=== PATIENT | female | born 1945 | race Caucasian/White ===

== ENCOUNTER 2017-09-26 03:11 | Emergency (ER) | payer MEDICARE, OTHER, SELFPAY ==
--- NOTE | 2017-09-26 03:20 | ED.ABDPAIN ---
HPI - Abdominal Pain General Chief Complaint: Urogenital-Female Stated Complaint: Thinks she has a kidney stone Time Seen by Provider: 09/26/17 03:20 Source: patient Mode of arrival: ambulatory Limitations: no limitations History of Present Illness HPI narrative: The patient arrives with urinary urgency that has been intermittent for about a week. Over the last 3-4 days she has developed left flank and left lower quadrant pain. She now has dysuria. She has nausea without emesis. She has no diarrhea. She has had no fever or chills. She has only a very remote history of UTI. She has also had kidney stones. Appetite has been good, bowel movements have decreased. Related Data Home Medications Medication Instructions Recorded Confirmed multivitamin [Multiple Vitamins] 1 tab PO QDAY #0 tab 12/03/15 Previous Rx's Medication Instructions Recorded [id number] 4 drp OTIC QID #10 ml 12/03/15 ondansetron HCl [Zofran] 4 mg PO Q4H PRN #10 tab 09/26/17 sulfamethoxazole-trimethoprim 1 tab PO BID 7 Days #14 tab 09/26/17 [Bactrim DS] Allergies Allergy/AdvReac Type Severity Reaction Status Date / Time adhesive tape [ADHESIVE TAPE] Allergy Unknown Verified 09/26/17 03:28 Review of Systems Review of Systems All systems reviewed & are unremarkable except as noted in HPI and below Constitutional Reports as per HPI, Denies anorexia, Denies body ache(s), Denies chills, Denies fatigue and Denies fever(s) ENT Ears, Nose, Mouth, and Throat: Denies nasal discharge and Denies sore throat Cardiovascular Denies chest pain, Denies irregular heart rhythm, Denies lightheadedness, Denies palpitations and Denies dyspnea Respiratory Denies cough and Denies dyspnea Gastrointestinal Gastrointestinal: Reports abdominal pain, Denies change in bowel habits, Denies diarrhea, Reports nausea and Denies vomiting Genitourinary Reports as per HPI, Denies hematuria, Reports urinary frequency, Reports flank pain, Denies urinary incontinence and Reports urinary urgency Musculoskeletal Reports back pain, Denies muscle weakness, Denies numbness and Denies tingling Integumentary/Breasts Denies pruritus, Denies erythema, Denies rash and Denies wounds Neurologic Denies numbness and Denies tingling Endocrine Denies fatigue and Denies palpitations Exam Initial Vital Signs Initial Vital Signs: Vital Signs Temperature 98.6 F 09/26/17 03:22 Pulse Rate 84 09/26/17 03:22 Respiratory Rate 16 09/26/17 03:22 Blood Pressure 168/68 H 09/26/17 03:22 Pulse Oximetry 96 09/26/17 03:22 Const General: cooperative and well developed Nutritional Appearance: well nourished Orientation: alert, awake, oriented x3 and not confused [facility] Head: normocephalic and atraumatic Mouth: oral mucosae normal and moist mucous membranes Throat: tonsils normal and uvula midline Resp Effort & Inspection: normal respiratory effort, able to speak in complete sentences, no respiratory distress and no use of accessory muscles Auscultation: clear to auscultation bilaterally, no rales, no rhonchi and no wheezes Cardio Rate: regular rate Rhythm: regular rhythm Heart Sounds: S1 normal, S2 normal, no click, no gallops, no murmurs and no rubs Pulses: normal peripheral pulses GI Inspection: non-distended Palpation: soft, no hepatosplenomegaly, No pulsatile mass and tender (Left flank and left lower quadrant tenderness without guarding or rebound.) Auscultation: normal bowel sounds Back/Spine/Pelvis Back: No CVA tenderness Cervical Spine: cervical ROM normal and No pain with cervical ROM Thoracic/Lumbar Spine: thoracic and lumbar spine normal to inspection Skin General: no rashes or lesions noted, No jaundice and No petechiae Neuro General: alert, oriented x3, gait normal and no focal motor deficits Speech: speech normal Course Orders Ordered: ED Orders 09/26/17 03:40 Complete Blood Count AUTO DIFF Stat Comprehensive Metabolic Panel Stat Lipase Stat 09/26/17 04:55 Urinalysis and Microscopic Stat Urine Culture Stat Ceftriaxone Sodium/Dextrose (Rocephin) 1 gm in 50 mls @ 100 mls/hr IV NOW ONE Stop: 09/26/17 05:44 Discontinued Medications Sodium Chloride (Normal Saline 0.9%) 1,000 mls @ 1,000 mls/hr IV BOLUS ONE Stop: 09/26/17 04:26 Last Infusion: 09/26/17 04:55 Dose: 0 mls/hr Admin: 09/26/17 03:45 Dose: 1,000 mls/hr Ketorolac Tromethamine (Toradol) 30 mg IV NOW ONE Stop: 09/26/17 03:28 Last Admin: 09/26/17 03:45 Dose: 30 mg Ketorolac Tromethamine (Toradol) 30 mg IV NOW ONE Stop: 09/26/17 04:12 Ondansetron HCl (Zofran) 4 mg IV NOW ONE Stop: 09/26/17 03:28 Last Admin: 09/26/17 03:45 Dose: 4 mg Ondansetron HCl (Zofran) 4 mg IV NOW ONE Stop: 09/26/17 04:12 Vital Signs - 8 hr 09/26/17 03:22 Temperature 98.6 F Pulse Rate 84 Respiratory Rate 16 Blood Pressure 168/68 H Pulse Oximetry 96 MDM - Abdominal Pain Lab Data Attestation: I reviewed the patient's lab results. Result diagrams: 09/26/17 03:40 09/26/17 03:40 Lab Results 09/26/17 09/26/17 09/26/17 Range/Units 03:40 03:40 04:55 WBC 9.6 (4.5-11.0) X10^3/uL RBC 4.73 (4.0-5.2) X10^6/uL Hgb 13.8 (12.0-16.0) g/dL Hct 41.2 (36-46) % MCV 87.1 (80-100) fL MCH 29.1 (26-34) PG MCHC 33.5 (30-36) % RDW 13.3 (11.6-14.8) % Plt Count 200 (150-400) X10^3/uL Neut % (Auto) 73.4 (50-75) % Lymph % (Auto) 21.7 L (25-40) % [place] % (Auto) 4.1 (3-14) % Eos % (Auto) 0.3 L (2-4) % Baso % (Auto) 0.5 (0-2) % Neut # (Auto) 7000 H (0787-3545) /uL Sodium 139 (137-145) mmol/L Potassium 4.3 (3.4-5.1) mmol/L Chloride 100 (98-107) mmol/L Carbon Dioxide 29 (22-32) mmol/L BUN 16 (7-17) mg/dL Creatinine 0.80 (0.52-1.04) mg/dL Estimated GFR > 60.0 (>60) mL/min BUN/Creatinine Ratio 20.0 (6-22) Glucose 174 H (80-110) mg/dL Calcium 10.3 H (8.4-10.2) mg/dL Total Bilirubin 0.7 (0.2-1.3) mg/dL AST 24 (14-36) IU/L ALT 42 (9-52) IU/L Alkaline Phosphatase 120 (38-126) U/L Total Protein 7.0 (6.3-8.2) g/dL Albumin 4.2 (3.5-5.0) g/dL Globulin 2.8 (1.7-4.1) g/dL Albumin/Globulin Ratio 1.5 (1.0-2.8) Lipase 55 (23-300) U/L Urine Color Yellow Urine Appearance Sl cloudy Urine pH 5.5 (4.5-8.0) Ur Specific [place] 1.025 (1.000-1.035) Urine Protein 2+ H (Negative) Urine Glucose (UA) Negative (Normal) g/dL Urine Ketones Trace H (NEGATIVE) Urine Occult Blood 3+ H (Negative) Urine Nitrate Positive H (Negative) Urine Bilirubin Negative (NEGATIVE) Urine Urobilinogen 0.2 (0.2) E.U./dL Ur Leukocyte Esterase 1+ H (NEGATIVE) Urine RBC 5-10/hpf H (0-5/HPF) Urine WBC >100/hpf H (0-5/HPF) Urine Bacteria Many (>30) H (None) Ur Culture Indicated? Specimen cultured Micro UA Comment Not Reportable MDM Narrative Medical decision making narrative: She has received IV fluids, and Toradol. Her pain is diminished. I have given her an initial dose of Rocephin for the UTI. She will be discharged on Septra DS and Zofran. Discharge Plan Departure Patient Disposition: Home, Self-Care Clinical Impression: Urinary tract infection Instructions: DI for Urinary Tract Infection (UTI) Activity Restrictions/Additional Instructions: Take Tylenol every 4 hr as needed for pain. Zofran every 4 hr as needed for nausea. Bactrim DS 2 times daily as prescribed. Return for increased pain, vomiting or fever. Prescriptions: New sulfamethoxazole-trimethoprim [Bactrim DS] 800-160 mg tablet 1 tab PO BID 7 Days Qty: 14 RF: 0 ondansetron HCl [Zofran] 4 mg tablet 4 mg PO Q4H PRN (Reason: nausea) Qty: 10 RF: 0 No Action multivitamin [Multiple Vitamins] 1 EACH tablet 1 tab PO QDAY Qty: 0 RF: 0 [id number] 10 ML drops,suspension 4 drp OTIC QID Qty: 10 RF: 0
[2017-09-26 03:22] VITALS: BP 168/68; PULSE 84; RESP 16; TEMP 37; O2SAT 96; BMI 32.3
[2017-09-26] MEDS: KETOROLAC 60 MG/2 ML VIAL 30 MG IV (03:45)
[2017-09-26] MEDS: ONDANSETRON 4 MG/2 ML INJ IV (03:45)
[2017-09-26] MEDS: SODIUM CHLORIDE 0.9% 1,000 ML 1000 ML IV (03:45)
[2017-09-26 03:50] LABS: Add Manual Diff / Slide Review NO; Basophils Percent Auto 0.5 % (0-2); Eosinophils Percent Auto 0.3 % (2-4); Hematocrit 41.2 % (36-46); Hemoglobin 13.8 g/dL (12.0-16.0); Lymphocytes Percent Auto 21.7 % (25-40); Mean Corpuscular HGB Conc 33.5 % (30-36); Mean Corpuscular Hemoglobin 29.1 PG (26-34); Mean Corpuscular Volume 87.1 fL (80-100); Monocytes Percent Auto 4.1 % (3-14); Neutrophils Absolute Auto 7000 /uL (3000-5900); Neutrophils Percent Auto 73.4 % (50-75); Platelet Count 200 X10^3/uL (150-400); Red Blood Cell Count 4.73 X10^6/uL (4.0-5.2); Red Cell Distribution Width 13.3 % (11.6-14.8); White Blood Cell Count 9.6 X10^3/uL (4.5-11.0)
[2017-09-26 04:01] LABS: Alanine Aminotransferase 42 IU/L (9-52); Albumin 4.2 g/dL (3.5-5.0); Albumin Globulin Ratio 1.5 (1.0-2.8); Alkaline Phosphatase 120 U/L (38-126); Aspartate Aminotransferase 24 IU/L (14-36); Bilirubin Total 0.7 mg/dL (0.2-1.3); Blood Urea Nitrogen 16 mg/dL (7-17); Calcium 10.3 mg/dL (8.4-10.2); Carbon Dioxide 29 mmol/L (22-32); Chloride 100 mmol/L (98-107); Estimated Glomerular Filt Rate > 60.0 mL/min (>60); Globulin 2.8 g/dL (1.7-4.1); Glucose 174 mg/dL (80-110); HEMOLYSIS < 15 (0-50); Lipase 55 U/L (23-300); Potassium 4.3 mmol/L (3.4-5.1); Sodium 139 mmol/L (137-145)
[2017-09-26 05:04] LABS: Bilirubin Urine UA NEGATIVE (NEGATIVE); Color Urine UA YELLOW; Glucose Urine UA NEGATIVE (Normal); Ketones Urine UA TRACE (NEGATIVE); Leukocyte Esterase Urine UA 1+ (NEGATIVE); Nitrite Urine UA POSITIVE (Negative); Occult Blood Urine UA 3+ (Negative); Protein Urine UA 2+ (Negative); Specific Gravity Urine UA 1.025 (1.000-1.035); Urobilinogen Urine UA 0.2 E.U./dL (0.2); pH Urine UA 5.5 (4.5-8.0)
[2017-09-26 05:05] LABS: Appearance Urine UA SL CLOUDY
[2017-09-26 05:14] LABS: Bacteria Urine Many (>30); Culture Indicated Urine Specimen Cultured; RBC Urine 5-10/HPF (0-5/HPF); WBC Urine >100/HPF (0-5/HPF)
[2017-09-26] MEDS: CEFTRIAXONE 1 GM/50 ML FROZ.PIGGY IV (05:21)
[2017-09-26 06:01] VITALS: BP 111/47; PULSE 68; RESP 14; O2SAT 94
[2017-09-26 06:06] VITALS: TEMP 36.4
== END 2017-09-26 06:09 | disposition home or self-care (01) ==
PROVIDERS: Emergency Provider Emergency Medicine
DX: N39.0 Urinary tract infection, site not specified (principal)
CPT/HCPCS: 36591; 80053; 81001; 83690; 85025; 87077; 87086; 87186; 96361; 96365; 96375; 99283; 99284; J1885; J2405

== ENCOUNTER → 2018-08-15 15:51 | Outpatient (CLI) | payer MEDICARE, OTHER, SELFPAY ==
[2018-08-15 17:52] LABS: TSH w/ Reflex to FT4 1.49 uIU/mL (0.47-4.68)
== END ==
PROVIDERS: Visit Provider Internal Medicine
DX: R53.83 Other fatigue (principal)
CPT/HCPCS: 36415; 84443

== ENCOUNTER 2018-10-05 12:24 | Emergency (ER) | payer MEDICARE, OTHER, SELFPAY ==
--- NOTE | 2018-10-05 12:44 | DI.RAD.S_ITS ---
PROCEDURE: XR CHEST 1V INDICATIONS: dizzyness TECHNIQUE: One view of the chest was acquired. COMPARISON: None. FINDINGS: Surgical changes and devices: None. Lungs and pleura: Minimal scar versus atelectasis at the right lung base is oriented in a linear configuration overlying the diaphragm. No suspicious area of consolidation is evident. No pleural effusions or pneumothorax. Mediastinum: Mediastinal contours appear normal. Heart size is normal. There is aortic atherosclerosis. Bones and chest wall: No suspicious bony lesions. Overlying soft tissues appear unremarkable. IMPRESSION: No acute cardiopulmonary process is evident. There is mild scarring versus atelectasis at the right lung base. Dictated by: Moises Chapman M.D. on 10/05/2018 at 12:06 Approved by: Moises Chapman M.D. on 10/05/2018 at 12:06
--- NOTE | 2018-10-05 12:49 | ED.DIZZY ---
HPI - Dizziness General Chief Complaint: Dizziness Stated Complaint: dizzy sent by [facility] Time Seen by Provider: 10/05/18 12:43 Source: patient Mode of arrival: ambulatory Limitations: no limitations History of Present Illness HPI Narrative: Patient 72-year-old female who presents with lightheadedness. She says she feels like her head is spinning she says she does not feel like the room is spinning. This started around 930 this morning. She has no weakness in her extremities no nausea no blurry vision no double vision. No speech or facial drooping. She denies any chest pain or heart palpitations. She says that she has had vertigo in the past this does not quite feel like vertigo. She did just get some classes prescriptions changed however she says these glasses or weight better than what she had prior. She is very nervous and anxious because 3 of her family members had a stroke including her mother who . She said her symptoms started when she was looking at a computer. Happened almost as soon as she sat down to look at the computer. She is able to ambulate but she says she just feels off. She has not fallen. MD complaint: lightheadedness Description: sense of movement and lightheadedness History of similar episodes: No History of trauma: No Related Data Home Medications Medication Instructions Recorded Confirmed multivitamin [Multiple Vitamins] 1 tab PO QDAY #0 tab 12/03/15 Previous Rx's Medication Instructions Recorded [id number]-[id number] 4 drp OTIC QID #10 ml 12/03/15 ondansetron HCl [Zofran] 4 mg PO Q4H PRN #10 tab 09/26/17 ondansetron HCl [Zofran] 4 mg PO Q6H PRN #10 tab 09/26/17 meclizine 12.5 mg PO TID PRN #14 tab 10/05/18 Allergies Allergy/AdvReac Type Severity Reaction Status Date / Time esomeprazole [From Nexium] Allergy Severe Vomiting Verified 10/05/18 12:43 adhesive tape [ADHESIVE TAPE] Allergy Unknown Verified 09/26/17 03:28 Review of Systems Review of Systems ROS Unobtainable: All systems reviewed & are unremarkable except as noted in HPI and below Constitutional Denies chills, Denies fever(s), Denies frequent falls, Denies lethargy and Denies weakness Eyes Denies change in vision, Denies eye discharge, Denies irritation and Denies loss of vision ENT Ears, Nose, Mouth, and Throat: Denies change in voice, Reports dizziness, Denies neck pain and Denies sore throat Cardiovascular Denies chest pain, Denies syncope, Denies irregular heart rhythm, Reports lightheadedness, Denies palpitations, Denies dyspnea, Denies dyspnea on exertion and Denies orthopnea Respiratory Denies cough, Denies dyspnea, Denies dyspnea on exertion and Denies wheezing Gastrointestinal Gastrointestinal: Denies abdominal pain, Denies change in bowel habits, Denies diarrhea, Denies nausea and Denies vomiting Musculoskeletal Denies neck pain Integumentary/Breasts Denies pruritus, Denies erythema, Denies rash and Denies wounds Neurologic Denies confusion, Reports dizziness, Denies syncope, Denies frequent falls, Denies loss of vision and Denies weakness Psychiatric Denies confusion Endocrine Denies palpitations Allergic/Immunologic Denies wheezing [facility] Social History Smoking Status: Never smoker Exam Initial Vital Signs Initial Vital Signs: Vital Signs Pulse Rate 70 10/05/18 14:06 Blood Pressure 152/57 H 10/05/18 14:06 GENERAL: Well-appearing, well-nourished and in no acute distress. HEENT: Head atraumatic,EOMI, pupils reactive, mild nystagmus face symmetric CARDIOVASCULAR: Regular rate and rhythm without murmurs, rubs or gallops. RESPIRATORY: Breath sounds equal bilaterally, no wheezes rales or rhonchi. ABDOMEN: Soft, nontender. Normoactive bowel sounds all 4 quadrants. No guarding or rebound. RECTAL: Hemoccult-positive, no hemorrhoids, nontender : No CVA tenderness EXTREMITIES: Normal range of motion, no clubbing or edema. Neurovascularly intact NEUROLOGICAL: Alert and oriented x4.Normal gait and speech. Cranial nerves II through XII grossly intact. Good zusdmy-it-yoxa, good nhtj-bb-reqg, strength equal bilaterally, no dysarthria or aphasia, sensation in tact to soft touch bilaterally, no visual changes, no facial droop SKIN: Warm, dry, no laceration, no petechiae, no rashes or lesions. Scores NIH Stroke Scale Level of Conciousness: Alert, keenly responsive Ask month/age: Answers both questions correctly. Open/close eyes, close hand: Performs both tasks correctly Best gaze horizontal: Normal Visual lundberg: No visual loss Facial palsy: Normal symetrical movement Left arm drift: No drift for full 10 sec Right arm drift: No drift for full 10 sec Left leg drift: No drift for full 10 sec Right leg drift: No drift for full 10 sec Limb ataxia: Absent Sensory on face/arms/legs: Normal, no sensory loss Best language: No aphasia, normal Dysarthria: Normal Extinction or inattention: No abnormality Total NIH Stroke scale score: 0 Course Orders Ordered: ED Orders 10/05/18 12:43 EKG-12 Lead Stat 10/05/18 12:44 XR chest 1V Stat 10/05/18 12:59 CT head/brain wo con Stat 10/05/18 13:20 Complete Blood Count AUTO DIFF Stat Comprehensive Metabolic Panel Stat Prothrombin Time INR Stat Troponin I Stat Discontinued Medications Meclizine HCl (Antivert) 25 mg PO NOW ONE Stop: 10/05/18 13:00 Last Admin: 10/05/18 13:52 Dose: 12.5 mg Ondansetron HCl (Zofran) 4 mg IV NOW ONE Stop: 10/05/18 13:00 Last Admin: 10/05/18 13:52 Dose: Not Given Vital Signs - 8 hr 10/05/18 14:06 10/05/18 14:24 10/05/18 15:07 Pulse Rate 70 68 Pulse Rate [Orthostatic Lying] 70 Pulse Rate [Orthostatic Sitting] 75 Pulse Rate [Orthostatic Standing] 78 Respiratory Rate 20 16 Blood Pressure [Left Arm] 165/59 H 130/54 L Blood Pressure [Orthostatic Lying] 152/57 H Blood Pressure [Orthostatic Sitting] 164/68 H Blood Pressure [Orthostatic Standing] 166/58 H Pulse Oximetry 97 97 MDM - Dizziness Lab Data Attestation: I reviewed the patient's lab results. Result diagrams: 10/05/18 13:20 10/05/18 13:20 Lab Results 10/05/18 10/05/18 10/05/18 Range/Units 13:20 13:20 13:20 WBC 5.7 (4.5-11.0) X10^3/uL RBC 4.94 (4.0-5.2) X10^6/uL Hgb 14.3 (12.0-16.0) g/dL Hct 43.0 (36-46) % MCV 87.2 (80-100) fL MCH 28.9 (26-34) PG MCHC 33.1 (30-36) % RDW 14.0 (11.6-14.8) % Plt Count 190 (150-400) X10^3/uL Neut % (Auto) 56.1 (50-75) % Lymph % (Auto) 36.2 (25-40) % [place] % (Auto) 5.7 (3-14) % Eos % (Auto) 1.3 L (2-4) % Baso % (Auto) 0.7 (0-2) % Neut # (Auto) 3200 (6249-3791) /uL Lymph # (Auto) 2100 (5045-0467) /uL [place] # (Auto) 300 (0-900) /uL Eos # (Auto) 100 (0-450) /uL Baso # (Auto) 0 (0-100) /uL PT 11.5 (10.1-12.7) SECONDS INR 1.0 (0.9-1.3) Sodium 141 (137-145) mmol/L Potassium 4.4 (3.4-5.1) mmol/L Chloride 104 (98-107) mmol/L Carbon Dioxide 30 (22-32) mmol/L BUN 20 H (7-17) mg/dL Creatinine 0.70 (0.52-1.04) mg/dL Estimated GFR > 60.0 (>60) mL/min BUN/Creatinine Ratio 28.6 H (6-22) Glucose 130 H (80-110) mg/dL Calcium 10.6 H (8.4-10.2) mg/dL Total Bilirubin 0.5 (0.2-1.3) mg/dL AST 35 (14-36) IU/L ALT 59 H (9-52) IU/L Alkaline Phosphatase 130 H (38-126) U/L Troponin I < 0.012 (0.01-0.034) ng/mL Total Protein 7.1 (6.3-8.2) g/dL Albumin 4.4 (3.5-5.0) g/dL Globulin 2.7 (1.7-4.1) g/dL Albumin/Globulin Ratio 1.6 (1.0-2.8) Point of Care Testing Glucose POC 127 Urine Dip Bedside Urine Glucose Negative Bedside Urine Bilirubin - Negative Bedside Urine Ketone - Negative Urine Specific [place] 1.015 Bedside Urine Occult Blood - Negative Bedside Urine pH 6.0 Bedside Urine Protein - Negative Bedside Urine Urobilinogen - Negative Bedside Urine Nitrite - Negative Bedside Urine Leukocytes - Negative Esterase Imaging Data CT scan - head: Radiologist's impression: PROCEDURE: CT HEAD/BRAIN WO CON INDICATIONS: dizzy TECHNIQUE: Noncontrast 4.5 mm thick angled axial sections acquired from the foramen magnum to the vertex, with coronal and sagittal reformats. For radiation dose reduction, the following was used: automated exposure control, adjustment of mA and/or kV according to patient size. COMPARISON: None. FINDINGS: Image quality: Excellent. CSF spaces: Basal cisterns are patent. No extra-axial fluid collections. The ventricles are symmetric in size and shape. Brain: No intracranial bleeds or masses. There is cerebral volume loss for age, with resultant ventricular and sulcal prominence. There are periventricular and deep white matter chronic small vessel ischemic changes. There is intracranial internal carotid artery atherosclerosis. Skull and face: Calvarium and visualized facial bones appear intact, without suspicious lesions. Sinuses: Visualized sinuses and mastoids are clear. IMPRESSION: No acute intracranial process. Dictated by: Fabiano Li M.D. on 10/05/2018 at 13:28 Chest x-ray: Radiologist's impression: PROCEDURE: XR CHEST 1V INDICATIONS: dizzyness TECHNIQUE: One view of the chest was acquired. COMPARISON: None. FINDINGS: Surgical changes and devices: None. Lungs and pleura: Minimal scar versus atelectasis at the right lung base is oriented in a linear configuration overlying the diaphragm. No suspicious area of consolidation is evident. No pleural effusions or pneumothorax. Mediastinum: Mediastinal contours appear normal. Heart size is normal. There is aortic atherosclerosis. Bones and chest wall: No suspicious bony lesions. Overlying soft tissues appear unremarkable. IMPRESSION: No acute cardiopulmonary process is evident. There is mild scarring versus atelectasis at the right lung base. Dictated by: Moises Chapman M.D. on 10/05/2018 at 12:06 ECG Data Attestation: I personally reviewed and interpreted this ECG as follows: Prior ECG tracings: not available for review Interpretation: Normal sinus rhythm rate [address] changes no T-wave inversions no priors to compare [place] interval 145 MDM Narrative Medical decision making narrative: Patient overall appears well. She does not seem significantly dizzy. She has no focal deficits. Her symptoms resolved completely with half a tablet of meclizine. She has Zofran at home. She did say that she has recently treated for left otitis externa. She finished those drops 2 days ago. She feels like that has improved. At this time I think symptoms are more consistent with vertigo rather than up posterior CVA. Discharge Plan Departure Patient Disposition: Home Clinical Impression: Vertigo Discharge Date/Time: 10/05/18 15:21 Interventions: ED Discharge Assessment Last Done: 10/05/18 15:20 Instructions: DI for Vertigo Activity Restrictions/Additional Instructions: *You have been diagnosed with vertigo *What to do: May be a very mild case of vertigo. *Continue to take medications as directed Meclizine 12.5 mg every 8 hours if needed for dizziness *Follow up with your primary care provider in 2-3 days *Return to ER if you should have persistent worsening dizziness, weakness, speech difficulty visual changes or any new, worsening or concerning symptoms Prescriptions: New meclizine 12.5 mg tablet 12.5 mg PO TID PRN (Reason: dizziness) Qty: 14 RF: 0 No Action multivitamin [Multiple Vitamins] 1 EACH tablet 1 tab PO QDAY Qty: 0 RF: 0 [id number]-[id number] 10 ML drops,suspension 4 drp OTIC QID Qty: 10 RF: 0 ondansetron HCl [Zofran] 4 mg tablet 4 mg PO Q4H PRN (Reason: nausea) Qty: 10 RF: 0 ondansetron HCl [Zofran] 4 mg tablet 4 mg PO Q6H PRN (Reason: nausea) Qty: 10 RF: 0
--- NOTE | 2018-10-05 12:59 | DI.CT.S_ITS ---
PROCEDURE: CT HEAD/BRAIN WO CON INDICATIONS: dizzy TECHNIQUE: Noncontrast 4.5 mm thick angled axial sections acquired from the foramen magnum to the vertex, with coronal and sagittal reformats. For radiation dose reduction, the following was used: automated exposure control, adjustment of mA and/or kV according to patient size. COMPARISON: None. FINDINGS: Image quality: Excellent. CSF spaces: Basal cisterns are patent. No extra-axial fluid collections. The ventricles are symmetric in size and shape. Brain: No intracranial bleeds or masses. There is cerebral volume loss for age, with resultant ventricular and sulcal prominence. There are periventricular and deep white matter chronic small vessel ischemic changes. There is intracranial internal carotid artery atherosclerosis. Skull and face: Calvarium and visualized facial bones appear intact, without suspicious lesions. Sinuses: Visualized sinuses and mastoids are clear. IMPRESSION: No acute intracranial process. Dictated by: Fabiano Li M.D. on 10/05/2018 at 13:28 Approved by: Fabiano Li M.D. on 10/05/2018 at 13:29
--- NOTE | 2018-10-05 13:03 | ED_ITS ---
HPI - Dizziness General Chief Complaint: Dizziness Stated Complaint: dizzy sent by [facility] Time Seen by Provider: 10/05/18 12:43 Source: patient Mode of arrival: ambulatory Limitations: no limitations History of Present Illness HPI Narrative: Patient 72-year-old female who presents with lightheadedness. She says she feels like her head is spinning she says she does not feel like the room is spinning. This started around 930 this morning. She has no weakness in her extremities no nausea no blurry vision no double vision. No speech or facial drooping. She denies any chest pain or heart palpitations. She says t hat she has had vertigo in the past this does not quite feel like vertigo. She did just get some classes prescriptions changed however she says these glasses or weight better than what she had prior. She is very nervous and anxious because 3 of her family members had a stroke including her mother who . She said her symptoms started when she was looking at a computer. Happened almost as soon as she sat down to look at the computer. She is able to ambulate but she says she just feels off. She has not fallen. MD complaint: lightheadedness Description: sense of movement and lightheadedness History of similar episodes: No History of trauma: No Related Data Home Medications Medication Instructions Recorded Confirmed multivitamin [Multiple Vitamins] 1 tab PO QDAY #0 tab 12/03/15 Previous Rx's Medication Instructions Recorded [id number] 4 drp OTIC QID #10 ml 12/03/15 ondansetron HCl [Zofran] 4 mg PO Q4H PRN #10 tab 09/26/17 ondansetron HCl [Zofran] 4 mg PO Q6H PRN #10 tab 09/26/17 meclizine 12.5 mg PO TID PRN #14 tab 10/05/18 Allergies Allergy/AdvReac Type Severity Reaction Status Date / Time esomeprazole [From Nexium] Allergy Severe Vomiting Verified 10/05/18 12:43 adhesive tape [ADHESIVE TAPE] Allergy Unknown Verified 09/26/17 03:28 Review of Systems Review of Systems ROS Unobtainable: All systems reviewed & are unremarkable except as noted in HPI and below Constitutional Denies chills, Denies fever(s), Denies frequent falls, Denies lethargy and Denies weakness Eyes Denies change in vision, Denies eye discharge, Denies irritation and Denies loss of vision ENT Ears, Nose, Mouth, and Throat: Denies change in voice, Reports dizziness, Denies neck pain and Denies sore throat Cardiovascular Denies chest pain, Denies syncope, Denies irregular heart rhythm, Reports lightheadedness, Denies palpitations, Denies dyspnea, Denies dyspnea on exertion and Denies orthopnea Respiratory Denies cough, Denies dyspnea, Denies dyspnea on exertion and Denies wheezing Gastrointestinal Gastrointestinal: Denies abdominal pain, Denies change in bowel habits, Denies diarrhea, Denies nausea and Denies vomiting Musculoskeletal Denies neck pain Integumentary/Breasts Denies pruritus, Denies erythema, Denies rash and Denies wounds Neurologic Denies confusion, Reports dizziness, Denies syncope, Denies frequent falls, Denies loss of vision and Denies weakness Psychiatric Denies confusion Endocrine Denies palpitations Allergic/Immunologic Denies wheezing [facility]LY [facility] Social History Smoking Status: Never smoker Exam Initial Vital Signs Initial Vital Signs: Vital Signs Pulse Rate 70 10/05/18 14:06 Blood Pressure 152/57 H 10/05/18 14:06 GENERAL: Well-appearing, well-nourished and in no acute distress. HEENT: Head atraumatic,EOMI, pupils reactive, mild nystagmus face symmetric CARDIOVASCULAR: Regular rate and rhythm without murmurs, rubs or gallops. RESPIRATORY: Breath sounds equal bilaterally, no wheezes rales or rhonchi. ABDOMEN: Soft, nontender. Normoactive bowel sounds all 4 quadrants. No guarding or rebound. RECTAL: Hemoccult-positive, no hemorrhoids, nontender : No CVA tenderness EXTREMITIES: Normal range of motion, no clubbing or edema. Neurovascularly in tact NEUROLOGICAL: Alert and oriented x4.Normal gait and speech. Cranial nerves II through XII grossly intact. Good rcwvyv-mw-affm, good knuy-be-vzzz, strength equal bilaterally, no dysarthria or aphasia, sensation in tact to soft touch bilaterally, no visual changes, no facial droop SKIN: Warm, dry, no laceration, no petechiae, no rashes or lesions. Scores NIH Stroke Scale Level of Conciousness: Alert, keenly responsive Ask month/age: Answers both questions correctly. Open/close eyes, close hand: Performs both tasks correctly Best gaze horizontal: Normal Visual lundberg: No visual loss Facial palsy: Normal symetrical movement Left arm drift: No drift for full 10 sec Right arm drift: No drift for full 10 sec Left leg drift: No drift for full 10 sec Right leg drift: No drift for full 10 sec Limb ataxia: Absent Sensory on face/arms/legs: Normal, no sensory loss Best language: No aphasia, normal Dysarthria: Normal Extinction or inattention: No abnormality Total NIH Stroke scale score: 0 Course Orders Ordered: ED Orders 10/05/18 12:43 EKG-12 Lead Stat 10/05/18 12:44 XR chest 1V Stat 10/05/18 12:59 CT head/brain wo con Stat 10/05/18 13:20 Complete Blood Count AUTO DIFF Stat Comprehensive Metabolic Panel Stat Prothrombin Time INR Stat Troponin I Stat Discontinued Medications Meclizine HCl (Antivert) 25 mg PO NOW ONE Stop: 10/05/18 13:00 Last Admin: 10/05/18 13:52 Dose: 12.5 mg Ondansetron HCl (Zofran) 4 mg IV NOW ONE Stop: 10/05/18 13:00 Last Admin: 10/05/18 13:52 Dose: Not Given Vital Signs - 8 hr 10/05/18 14:06 10/05/18 14:24 10/05/18 15:07 Pulse Rate 70 68 Pulse Rate [Orthostatic Lying] 70 Pulse Rate [Orthostatic Sitting] 75 Pulse Rate [Orthostatic Standing] 78 Respiratory Rate 20 16 Blood Pressure [Left Arm] 165/59 H 130/54 L Blood Pressure [Orthostatic Lying] 152/57 H Blood Pressure [Orthostatic Sitting] 164/68 H Blood Pressure [Orthostatic Standing] 166/58 H Pulse Oximetry 97 97 MDM - Dizziness Lab Data Attestation: I reviewed the patient's lab results. Result diagrams: 10/05/18 13:20 10/05/18 13:20 Lab Results 10/05/18 10/05/18 10/05/18 Range/Units 13:20 13:20 13:20 WBC 5.7 (4.5-11.0) X10^3/uL RBC 4.94 (4.0-5.2) X10^6/uL Hgb 14.3 (12.0-16.0) g/dL Hct 43.0 (36-46) % MCV 87.2 (80-100) fL MCH 28.9 (26-34) PG MCHC 33.1 (30-36) % RDW 14.0 (11.6-14.8) % Plt Count 190 (150-400) X10^3/uL Neut % (Auto) 56.1 (50-75) % Lymph % (Auto) 36.2 (25-40) % [place] % (Auto) 5.7 (3-14) % Eos % (Auto) 1.3 L (2-4) % Baso % (Auto) 0.7 (0-2) % Neut # (Auto) 3200 (1813-1416) /uL Lymph # (Auto) 2100 (2880-7395) /uL [place] # (Auto) 300 (0-900) /uL Eos # (Auto) 100 (0-450) /uL Baso # (Auto) 0 (0-100) /uL PT 11.5 (10.1-12.7) SECONDS INR 1.0 (0.9-1.3) Sodium 141 (137-145) mmol/L Potassium 4.4 (3.4-5.1) mmol/L Chloride 104 (98-107) mmol/L Carbon Dioxide 30 (22-32) mmol/L BUN 20 H (7-17) mg/dL Creatinine 0.70 (0.52-1.04) mg/dL Estimated GFR > 60.0 (>60) mL/min BUN/Creatinine Ratio 28.6 H (6-22) Glucose 130 H (80-110) mg/dL Calcium 10.6 H (8.4-10.2) mg/dL Total Bilirubin 0.5 (0.2-1.3) mg/dL AST 35 (14-36) IU/L ALT 59 H (9-52) IU/L Alkaline Phosphatase 130 H (38-126) U/L Troponin I < 0.012 (0.01-0.034) ng/mL Total Protein 7.1 (6.3-8.2) g/dL Albumin 4.4 (3.5-5.0) g/dL Globulin 2.7 (1.7-4.1) g/dL Albumin/Globulin Ratio 1.6 (1.0-2.8) Point of Care Testing Glucose POC 127 Urine Dip Bedside Urine Glucose Negative Bedside Urine Bilirubin - Negative Bedside Urine Ketone - Negative Urine Specific [place] 1.015 Bedside Urine Occult Blood - Negative Bedside Urine pH 6.0 Bedside Urine Protein - Negative Bedside Urine Urobilinogen - Negative Bedside Urine Nitrite - Negative Bedside Urine Leukocytes - Negative Esterase Imaging Data CT scan - head: Radiologist's impression: PROCEDURE: CT HEAD/BRAIN WO CON INDICATIONS: dizzy TECHNIQUE: Noncontrast 4.5 mm thick angled axial sections acquired from the foramen magnum to the vertex, with coronal and sagittal reformats. For radiation dose reduction, the following was used: automated exposure control, adjustment of mA and/or kV according to patient size. COMPARISON: None. FINDINGS: Image quality: Excellent. CSF spaces: Basal cisterns are patent. No extra-axial fluid collections. The ventricles are symmetric in size and shape. Brain: No intracranial bleeds or masses. There is cerebral volume loss for age, with resultant ventricular and sulcal prominence. There are periventricular and deep white matter chronic small vessel ischemic changes. There is intracranial internal carotid artery atherosclerosis. Skull and face: Calvarium and visualized facial bones appear intact, without suspicious lesions. Sinuses: Visualized sinuses and mastoids are clear. IMPRESSION: No acute intracranial process. Dictated by: Fabiano Li M.D. on 10/05/2018 at 13:28 Chest x-ray: Radiologist's impression: PROCEDURE: XR CHEST 1V INDICATIONS: dizzyness TECHNIQUE: One view of the chest was acquired. COMPARISON: None. FINDINGS: Surgical changes and devices: None. Lungs and pleura: Minimal scar versus atelectasis at the right lung base is oriented in a linear configuration overlying the diaphragm. No suspicious area of c onsolidation is evident. No pleural effusions or pneumothorax. Mediastinum: Mediastinal contours appear normal. Heart size is normal. There is aortic atherosclerosis. Bones and chest wall: No suspicious bony lesions. Overlying soft tissues appear unremarkable. IMPRESSION: No acute cardiopulmonary process is evident. There is mild scarring versus atelectasis at the right lung base. Dictated by: Moises Chapman M.D. on 10/05/2018 at 12:06 ECG Data Attestation: I personally reviewed and interpreted this ECG as follows: Prior ECG tracings: not available for review Interpretation: Normal sinus rhythm rate [address] changes no T-wave inversions no priors to compare IA interval 145 MDM Narrative Medical decision making narrative: Patient overall appears well. She does not seem significantly dizzy. She has no focal deficits. Her symptoms resolved completely with half a tablet of meclizine. She has Zofran at home. She did say that she has recently treated for left otitis externa. She finished those drops 2 days ago. She feels like that has improved. At this time I think symptoms are more consistent with vertigo rather than up posterior CVA. Discharge Plan Departure Patient Disposition: Home Clinical Impression: Vertigo Discharge Date/Time: 10/05/18 15:21 Interventions: ED Discharge Assessment Last Done: 10/05/18 15:20 Instructions: DI for Vertigo Activity Restrictions/Additional Instructions: *You have been diagnosed with vertigo *What to do: May be a very mild case of vertigo. *Continue to take medications as directed Meclizine 12.5 mg every 8 hours if needed for dizziness *Follow up with your primary care provider in 2-3 days *Return to ER if you should have persistent worsening dizziness, weakness, speech difficulty visual changes or any new, worsening or concerning symptoms Prescriptions: New meclizine 12.5 mg tablet 12.5 mg PO TID PRN (Reason: dizziness) Qty: 14 RF: 0 No Action multivitamin [Multiple Vitamins] 1 EACH tablet 1 tab PO QDAY Qty: 0 RF: 0 [id number]-[id number]-[id number] 10 ML drops,suspension 4 drp OTIC QID Qty: 10 RF: 0 ondansetron HCl [Zofran] 4 mg tablet 4 mg PO Q4H PRN (Reason: nausea) Qty: 10 RF: 0 ondansetron HCl [Zofran] 4 mg tablet 4 mg PO Q6H PRN (Reason: nausea) Qty: 10 RF: 0
[2018-10-05 13:32] LABS: Add Manual Diff / Slide Review NO; Basophils Absolute Auto 0 /uL (0-100); Basophils Percent Auto 0.7 % (0-2); Eosinophils Absolute Auto 100 /uL (0-450); Eosinophils Percent Auto 1.3 % (2-4); Hemoglobin 14.3 g/dL (12.0-16.0); Lymphocytes Absolute Auto 2100 /uL (1100-4500); Lymphocytes Percent Auto 36.2 % (25-40); Mean Corpuscular HGB Conc 33.1 % (30-36); Mean Corpuscular Hemoglobin 28.9 PG (26-34); Mean Corpuscular Volume 87.2 fL (80-100); Monocytes Absolute Auto 300 /uL (0-900); Monocytes Percent Auto 5.7 % (3-14); Neutrophils Absolute Auto 3200 /uL (1500-7000); Neutrophils Percent Auto 56.1 % (50-75); Platelet Count 190 X10^3/uL (150-400); Red Blood Cell Count 4.94 X10^6/uL (4.0-5.2); White Blood Cell Count 5.7 X10^3/uL (4.5-11.0)
[2018-10-05 13:38] LABS: Prothrombin Time 11.5 SECONDS (10.1-12.7)
[2018-10-05 13:43] LABS: Alanine Aminotransferase 59 IU/L (9-52); Albumin 4.4 g/dL (3.5-5.0); Albumin Globulin Ratio 1.6 (1.0-2.8); Alkaline Phosphatase 130 U/L (38-126); Aspartate Aminotransferase 35 IU/L (14-36); BUN Creatinine Ratio 28.6 (6-22); Bilirubin Total 0.5 mg/dL (0.2-1.3); Blood Urea Nitrogen 20 mg/dL (7-17); Calcium 10.6 mg/dL (8.4-10.2); Carbon Dioxide 30 mmol/L (22-32); Chloride 104 mmol/L (98-107); Estimated Glomerular Filt Rate > 60.0 mL/min (>60); Globulin 2.7 g/dL (1.7-4.1); Glucose 130 mg/dL (80-110); HEMOLYSIS < 15 (0-50); Potassium 4.4 mmol/L (3.4-5.1); Sodium 141 mmol/L (137-145); Total Protein 7.1 g/dL (6.3-8.2)
[2018-10-05] MEDS: MECLIZINE HCL 12.5 MG TABLET 25 MG PO (13:52)
[2018-10-05 13:54] LABS: Troponin I < 0.012 ng/mL (0.01-0.034)
[2018-10-05 14:06] VITALS: BP 152/57; BP 164/68; BP 166/58; PULSE 70; PULSE 75; PULSE 78
[2018-10-05 14:24] VITALS: BP 165/59; PULSE 70; RESP 20; O2SAT 97
[2018-10-05 15:07] VITALS: BP 130/54; PULSE 68; RESP 16; O2SAT 97
== END 2018-10-05 15:21 | disposition home or self-care (01) ==
PROVIDERS: Emergency Provider Emergency Medicine
DX: R42 Dizziness and giddiness (principal)
CPT/HCPCS: 36415; 70450; 71045; 80053; 81003; 82962; 84484; 85025; 85610; 93005; 93010; 99283; 99285

== ENCOUNTER → 2020-01-01 14:47 | Outpatient (CLI) | payer MEDICARE, OTHER, SELFPAY ==
[2020-01-01 15:49] LABS: Creatinine Urine Random 138.6 mg/dL
[2020-01-01 15:53] LABS: Microalbumi Creatinin Ratio Ur 15.8 ug/mg CR (<30); Microalbumin Urine Random 2.2 mg/dL (0-1.6)
== END ==
PROVIDERS: PCP Student in an Organized Health Care Education/Training Program; Referring Provider Student in an Organized Health Care Education/Training Program; Visit Provider Student in an Organized Health Care Education/Training Program
DX: E11.9 Type 2 diabetes mellitus without complications (principal)
CPT/HCPCS: 82043; 82570

== ENCOUNTER → 2020-02-03 12:50 | Outpatient (CLI) | payer MEDICARE, SELFPAY | PROVIDERS: PCP Student in an Organized Health Care Education/Training Program; Referring Provider Student in an Organized Health Care Education/Training Program; Visit Provider Student in an Organized Health Care Education/Training Program | DX: Z13.820 Encounter for screening for osteoporosis (principal); Z78.0 Asymptomatic menopausal state; K90.0 Celiac disease; E11.9 Type 2 diabetes mellitus without complications; Z90.722 Acquired absence of ovaries, bilateral; Z91.89 Other specified personal risk factors, not elsewhere classified; Z87.891 Personal history of nicotine dependence | CPT/HCPCS: 77080 ==

== ENCOUNTER → 2020-02-13 11:04 | Outpatient (CLI) | payer MEDICARE, SELFPAY ==
--- NOTE | 2020-02-13 12:15 | DIET.PN ---
Diabetes Intake: Initial Assessment Assess: Ms. Bailon is a 74 YOF referred for type 2 diabetes. She has long standing hx of pre-diabetes, but admits to erratic eating habits over the last few years. She reports PMHx of macular degeneration, water retention, celiac disease, ulcerative colitis. She walk for 30 min most days of the week. Is not currently monitoring her BG. Labs: Per pt report: Ac: 7.6 Ur Microabl: 2.2 Microalb: Cr: 15.8 Meds: metformin 500mg qd Diet: per 24 hr recall: B: yogurt, fruit, eggs, cheerios L: turkey wrap; sandwich; leftovers (often skips) D: Soup; pork chop w/applesauce and peas; pizza Sn: Comments: evening snacker Wt: 189lb Ht: 62in BMI: 34.5 BP: 126/66 DX: Altered nutrition related laboratory values related to impaired glucose metabolism, lack of previous exposure to nutrition information as evidenced by pt report, diagnosis of diabetes, previous diet high in refined carbohydrates. Intervention: 1. Completed intake assessment. Discussed barriers to care. 2. Discussed pathophysiology of diabetes. Reviewed A1c and its correlation to blood glucose numbers. Discussed recommended BG ranges. 3. Discussed importance of self-monitoring, how often, and when to check. 4. Reviewed hyper/hypoglycemia and treatment. 5. Reviewed safe disposal of equipment (strip/lancets/insulin needles). 6. Created SMART goals for pt self-care and success. 7. Discussed program curriculum outline and class needs based on individual goals. SMART Goals: 1. Pt with goal weight of 150lbs in the next 6mo through portion control, carb counting, reading labels and more mod-vigorous activity. Monitor/Evaluate: Pt will attend full DSME program. Physiology class scheduled for Feb 17.
== END ==
PROVIDERS: PCP Student in an Organized Health Care Education/Training Program; Referring Provider Student in an Organized Health Care Education/Training Program; Visit Provider Student in an Organized Health Care Education/Training Program
DX: E11.9 Type 2 diabetes mellitus without complications (principal); E66.9 Obesity, unspecified; Z68.34 Body mass index [BMI] 34.0-34.9, adult; Z71.3 Dietary counseling and surveillance
CPT/HCPCS: G0108

== ENCOUNTER → 2020-04-14 13:57 | Outpatient (CLI) | payer MEDICARE, SELFPAY ==
--- NOTE | 2020-04-14 15:46 | DIET.PN ---
Diabetes: Healthy Eating 1 Intervention: ? Discussed pathophysiology of diabetes and impact of nutrition/diet on blood sugar control.? Discussed fed versus non-fed state.?? ? Reviewed importance of Balance, Variety, and Moderation. ? Discussed the effect of carbohydrates/protein/fat on blood sugar control.? ? Stressed importance of consistent carbohydrate intake at each meal and provided instructions for recommended servings/portions of carbohydrates/protein per meal. Provided educational material. ? Reviewed carbohydrate counting and measuring carbohydrate content via serving sizes and reading nutrition labels.? Provided handouts.?? ? Discussed the difference between simple versus complex carbohydrates and the effect of fiber on blood sugar control.? Discussed various methods to increase fiber content in diet. ? Discussed the plate method for creating more carbohydrate conscious balanced meals. ? Stressed importance of meal timing and not going >4-5 hours between meals. Encouraged adding protein to evening snack to support glucose control overnight. ? Discussed importance of making dietary habits part of lifestyle change.
== END ==
PROVIDERS: PCP Student in an Organized Health Care Education/Training Program; Referring Provider Student in an Organized Health Care Education/Training Program; Visit Provider Student in an Organized Health Care Education/Training Program
DX: E11.9 Type 2 diabetes mellitus without complications (principal); Z71.3 Dietary counseling and surveillance
CPT/HCPCS: G0109

== ENCOUNTER → 2020-04-29 13:01 | Outpatient (CLI) | payer MEDICARE, SELFPAY ==
--- NOTE | 2020-04-29 13:50 | DIET.PN ---
DIABETES Nutrition Initial Assessment:? ASSESS:?? Ms. Bailon is a 74 yof??referred for type 2 diabetes seen as part of DSME program. She has not been monitoring her blood sugar, but reports changes to her dietary habits. She continues to walk daily. She admits she often skips meals or will snack during the day based on work schedule. She is working on meal planning/prep for the week. ??? LABS: Per pt report:? A1c: 7.6 ? MEDS:??metformin 500mg qd ; statin (has not started taking) ? DIET: Per 24-hour recall:? B: eggs; toast; yogurt L: cup o noodles; grapes D: chicken w/ veg stir [place] Eating Out: 2-4 x/wk Changes in Appetite: less hungry Nutrition Supplements: vitamin D, turmeric ? Weight: 189lb Height: 62in BMI: ? 34.5 ? Exercise:? walking 30 min daily NUTRITION DX 1. Altered Nutrition related labs related to impaired glucose metabolism, lack of previous exposure to accurate nutrition information as evidenced by pt report, dx of diabetes, previous diet high in refined carbohydrates.? INTERVENTION(s): 1. Reviewed pathophysiology of diabetes and impact of nutrition/diet on blood sugar control.? Discussed fed versus non-fed state.?? 2. Discussed the effect of carbohydrates/protein/fat on blood sugar control.? Stressed importance of consistent carbohydrate intake at each meal and provided instructions for recommended servings/portions of carbohydrates/protein per meal. Provided pt with educational material. 3. Reviewed carbohydrate counting and measuring carbohydrate content via serving sizes and reading nutrition labels.? Provided handouts.?? 4. Discussed the difference between simple versus complex carbohydrates and the effect of fiber on blood sugar control.? Discussed various methods to increase fiber content in diet. 5. Stressed importance of meal timing and not going >4-5 hours between meals. Encouraged adding protein to evening snack to support glucose control overnight. Patient agreeable. 6. Discussed healthy weight loss goals of 1-2lbs per week through diet and exercise.? Pt agreeable to walking at least 30 minutes daily. 7. Recommend monitoring fasting and alternating 2 hr PP mealtime glucose. MONITOR/EVALUATE: Anticipate good compliance.? Healthy eating class 2 scheduled for May 19.
[2020-04-29 13:51] VITALS: BMI 34.8
== END ==
PROVIDERS: PCP Student in an Organized Health Care Education/Training Program; Referring Provider Student in an Organized Health Care Education/Training Program; Visit Provider Student in an Organized Health Care Education/Training Program
DX: E11.9 Type 2 diabetes mellitus without complications (principal); Z79.84 Long term (current) use of oral hypoglycemic drugs
CPT/HCPCS: G0109

== ENCOUNTER 2021-04-21 09:15 | Emergency (ER) | payer MEDICARE, SELFPAY ==
[2021-04-21 09:29] VITALS: BP 219/94; PULSE 73; RESP 18; TEMP 36.1; O2SAT 98; BMI 32.7
--- NOTE | 2021-04-21 09:44 | ED.FEMALEGU ---
HPI - Female Genitourinary General Chief complaint: Urogenital-Female Stated complaint: Thinks kidney stone Time Seen by Provider: 04/21/21 09:42 Source: patient Mode of arrival: Wheelchair History of Present Illness HPI Narrative: 75-year-old female former smoker with a history of hypertension diabetes presents with family in the chief complaint of relatively sudden onset left flank pain with radiation into her groin. She denies any obvious provocation or palliation. She states it is quite severe, sharp and stabbing seems to get significantly worse without any obvious provocation. She denies any chest pain or shortness of breath. She has had no fever or chills. She is nauseated but denies any vomiting. She states she has had 3 prior kidney stones and this feels quite similar. Related Data Home Medications Medication Instructions Recorded Confirmed multivitamin (Multiple Vitamins) 1 tab PO QDAY #0 tab 12/03/15 09/23/20 aspirin 81 mg chewable tablet 81 mg PO DAILY 12/25/19 09/23/20 lansoprazole 30 mg capsule,delayed 30 mg PO DAILY 12/25/19 09/23/20 release metformin 500 mg tablet 500 mg PO DAILY 12/25/19 09/23/20 metoprolol succinate 50 mg capsule 50 mg PO DAILY 12/25/19 09/23/20 sprinkle, ext. release 24 hr telmisartan 40 mg tablet (Micardis) 40 mg PO DAILY 12/25/19 09/23/20 Previous Rx's Medication Instructions Recorded cefpodoxime 200 mg tablet 200 mg PO BID 10 Days #20 tab 04/21/21 hydrocodone 5 mg-acetaminophen 325 1 tab PO Q4-6H PRN #10 tab 04/21/21 mg tablet ketorolac 10 mg tablet 10 mg PO Q6H PRN #14 tab 04/21/21 ondansetron 4 mg disintegrating 4 mg PO TID-QID PRN #10 tab 04/21/21 tablet tamsulosin 0.4 mg capsule (Flomax) 0.4 mg PO DAILY #10 cap 04/21/21 Allergies Allergy/AdvReac Type Severity Reaction Status Date / Time esomeprazole [From Nexium] Allergy Severe Vomiting Verified 09/23/20 10:41 adhesive tape [ADHESIVE TAPE] Allergy Unknown Verified 09/23/20 10:41 Review of Systems Review of Systems Narrative: GENERAL: Denies chills, fatigue, malaise, fever, sweats. HEENT: Denies sinus pain, ear pain, sore throat, difficulty swallowing, dizziness. RESPIRATORY: Denies dyspnea, cough, wheezing, hemoptysis, sputum. CARDIOVASCULAR: Denies chest pain, palpitations, orthopnea, edema, GASTROINTESTINAL: See HPI : See HPI MUSCULOSKELETAL: denies weakness, joint pain, or bony pain SKIN: Denies rash, skin lesions, or other NEUROLOGIC: Denies weakness, headache, numbness, change in speech, confusion, seizures, incoordination. PSYCHIATRIC: No concerning psychosocial issues. 12 point review of systems is negative except for those stated above Patient History alcohol intake frequency: 0-2 drinks per day Substance Use Type: does not use Exam Narrative Exam Narrative: GEN: AOx3 and in mild distress, holding an emesis bag and rubbing her left flank EYES: Pupils are equal, round, and reactive to light and accommodation. Extraoccular muscles are intact bilaterally. There is no subconjunctival hemorrhage or exudate. CHEST: Lungs are clear to auscultation bilaterally and free of wheezes, rales, or rhonchi. Heart rate is regular rhythm, there are no murmurs, clicks, rubs, or gallops. There is no chest wall tenderness. ABD: Abdomen is soft and nontender. There is no guarding or rebound. Bowel sounds are normal in all 4 quadrants. There is no mass or organomegaly. EXT: Full painless ROM of all extremities with no loss of sensation or strength. SKIN: Warm, pink, and dry. No erythema or rash Initial Vital Signs Initial Vital Signs: Vital Signs Temperature 96.9 F L 04/21/21 09:29 Pulse Rate 73 04/21/21 09:29 Respiratory Rate 18 04/21/21 09:29 Blood Pressure 219/94 H 04/21/21 09:29 Pulse Oximetry 98 04/21/21 09:29 Course Orders Ordered: Discontinued Medications Sodium Chloride (Normal Saline 0.9%) 1,000 mls @ 1,000 mls/hr IV BOLUS PRN PRN Reason: Fluid replacement Last Infusion: 04/21/21 11:28 Dose: 0 mls/hr Documented by: CARLOS ENRIQUE Admin: 04/21/21 09:50 Dose: 1,000 mls/hr Documented by: JGODFREY Ketorolac Tromethamine (Ketorolac 30 Mg/Ml Vial) 15 mg IV NOW ONE Stop: 04/21/21 09:45 Last Admin: 04/21/21 09:50 Dose: 15 mg Documented by: HOMA Ondansetron HCl (Ondansetron 4 Mg/2 Ml Inj) 4 mg IV NOW ONE Stop: 04/21/21 09:55 Last Admin: 04/21/21 09:56 Dose: 4 mg Documented by: HOMA Vital Signs Vital signs: Vital Signs - 8 hr 04/21/21 09:29 Temperature 96.9 F L Pulse Rate 73 Respiratory Rate 18 Blood Pressure 219/94 H Pulse Oximetry 98 MDM - Female Genitourinary Lab Data Result diagrams: 04/21/21 09:45 04/21/21 09:45 Labs: Lab Results 04/21/21 04/21/21 04/21/21 Range/Units 09:45 09:45 11:30 WBC 7.6 (4.5-11.0) X10^3/uL RBC 5.04 (4.0-5.2) X10^6/uL Hgb 14.4 (12.0-16.0) g/dL Hct 43.6 (36-46) % MCV 86.3 (80-100) fL MCH 28.6 (26-34) PG MCHC 33.1 (30-36) % RDW 13.3 (11.6-14.8) % Plt Count 159 (150-400) X10^3/uL Neut % (Auto) 74.1 (50-75) % Lymph % (Auto) 22.0 L (25-40) % [place] % (Auto) 3.2 (3-14) % Eos % (Auto) 0.2 L (2-4) % Baso % (Auto) 0.5 (0-2) % Neut # (Auto) 5600 (7034-4838) /uL Lymph # (Auto) 1700 (7988-0325) /uL [place] # (Auto) 200 (0-900) /uL Eos # (Auto) 0 (0-450) /uL Baso # (Auto) 0 (0-100) /uL Sodium 137 (137-145) mmol/L Potassium 4.8 (3.4-5.1) mmol/L Chloride 107 (98-107) mmol/L Carbon Dioxide 26 (22-32) mmol/L BUN 19 H (7-17) mg/dL Creatinine 0.75 (0.52-1.04) mg/dL Estimated GFR > 60.0 (>60) mL/min BUN/Creatinine Ratio 25.3 H (6-22) Glucose 188 H (80-110) mg/dL Calcium 10.9 H (8.4-10.2) mg/dL Total Bilirubin 0.5 (0.2-1.3) mg/dL AST 36 (14-36) IU/L ALT 41 H (<35) IU/L Alkaline Phosphatase 105 (38-126) U/L Total Protein 7.0 (6.3-8.2) g/dL Albumin 4.3 (3.5-5.0) g/dL Globulin 2.7 (1.7-4.1) g/dL Albumin/Globulin Ratio 1.6 (1.0-2.8) Urine RBC 10-30/hpf H (0-5/HPF) Urine WBC >100/hpf H (0-5/HPF) Ur Squamous Epith Cells 5-10 /hpf H (0-5/HPF) Urine Bacteria Many (>30) H (None) Ur Culture Indicated? Culture not indicate Urine Dip Bedside Urine Glucose Negative Bedside Urine Bilirubin - Negative Bedside Urine Ketone +/- 5 Urine Specific [place] 1.030 Bedside Urine Occult Blood +++ Bedside Urine pH 5.5 Bedside Urine Protein +/- 15 Bedside Urine Urobilinogen - Negative Bedside Urine Nitrite - Negative Bedside Urine Leukocytes ++ [address] scan - abdomen/pelvis: Radiologist's Impression: Left UVJ 4 mm stone with mild left hydro MDM Narrative Medical decision making narrative: History and physical exam are very reassuring. Labs continued to be stable. Her pain has been controlled for the duration of her visit. No evidence of infection, renal failure. Patient tolerating orals. Return precautions given and questions answered to her apparent satisfaction Discharge Plan Departure Patient Disposition: Home Clinical Impression: Kidney calculi, Acute UTI Instructions: DI for Kidney Stones Activity Restrictions/Additional Instructions: *You have been diagnosed with [left-sided flank pain, most likely consistent with kidney stone. Your urine does suggest there is likely some infection as well. Your blood work is very reassuring as is your response to medications. *What to do: *Please continue to take your regular medications as directed. [x ] New medication prescriptions sent to your pharmacy: [ [facility]] [ ] New medication written as a paper prescription [ ] No new medications given *Please follow up with your primary care provider in 2-3 days, call for an appointment. Let them know you were seen in the Emergency Department and that we ask that you be seen in follow up. We will electronically transmit a record of today's note if your PCP is in our system *If you do not have a primary care provider please contact the [facility] Resource line at [phone]. They will ask some questions about your medical history and help get you set up with a doctor in the community. *Return to Emergency Department if you should have any new, worsening or concerning symptoms, such as [fever greater than 101 F, shaking chills, worsening pain, persistent vomiting or other bothersome symptoms] Prescriptions: New cefpodoxime 200 mg tablet 200 mg PO BID 10 Days Qty: 20 0RF Rx Instructions: must administer with a meal/food ketorolac 10 mg tablet 10 mg PO Q6H PRN (Reason: pain) Qty: 14 0RF ondansetron 4 mg tablet,disintegrating 4 mg PO TID-QID PRN (Reason: nausea and vomiting) Qty: 10 0RF tamsulosin [Flomax] 0.4 mg capsule 0.4 mg PO DAILY Qty: 10 0RF hydrocodone-acetaminophen 5-325 mg tablet 1 tab PO Q4-6H PRN (Reason: pain) Qty: 10 0RF No Action multivitamin [Multiple Vitamins] 1 EACH tablet 1 tab PO QDAY Qty: 0 0RF metoprolol succinate 50 mg capsule,sprinkle,ER 24hr 50 mg PO DAILY 0RF metformin 500 mg tablet 500 mg PO DAILY 0RF Hold Instructions: Due for labs telmisartan [Micardis] 40 mg tablet 40 mg PO DAILY 0RF aspirin 81 mg tablet,chewable 81 mg PO DAILY 0RF lansoprazole 30 mg capsule,delayed release(DR/EC) 30 mg PO DAILY 0RF Referrals: Franklyn Daugherty MD [Primary Care Provider] -
[2021-04-21] MEDS: SODIUM CHLORIDE 0.9% 1,000 ML 1000 ML IV (09:50)
[2021-04-21] MEDS: KETOROLAC 30 MG/ML VIAL 15 MG IV (09:50)
[2021-04-21 09:53] LABS: Add Manual Diff / Slide Review NO; Basophils Absolute Auto 0 /uL (0-100); Basophils Percent Auto 0.5 % (0-2); Eosinophils Absolute Auto 0 /uL (0-450); Eosinophils Percent Auto 0.2 % (2-4); Hematocrit 43.6 % (36-46); Hemoglobin 14.4 g/dL (12.0-16.0); Lymphocytes Absolute Auto 1700 /uL (1100-4500); Mean Corpuscular HGB Conc 33.1 % (30-36); Mean Corpuscular Hemoglobin 28.6 PG (26-34); Mean Corpuscular Volume 86.3 fL (80-100); Monocytes Absolute Auto 200 /uL (0-900); Monocytes Percent Auto 3.2 % (3-14); Neutrophils Absolute Auto 5600 /uL (1500-7000); Neutrophils Percent Auto 74.1 % (50-75); Platelet Count 159 X10^3/uL (150-400); Red Blood Cell Count 5.04 X10^6/uL (4.0-5.2); Red Cell Distribution Width 13.3 % (11.6-14.8); White Blood Cell Count 7.6 X10^3/uL (4.5-11.0)
[2021-04-21] MEDS: ONDANSETRON 4 MG/2 ML INJ IV (09:56)
[2021-04-21 10:08] LABS: Alanine Aminotransferase 41 IU/L (<35); Albumin 4.3 g/dL (3.5-5.0); Albumin Globulin Ratio 1.6 (1.0-2.8); Alkaline Phosphatase 105 U/L (38-126); Aspartate Aminotransferase 36 IU/L (14-36); BUN Creatinine Ratio 25.3 (6-22); Bilirubin Total 0.5 mg/dL (0.2-1.3); Blood Urea Nitrogen 19 mg/dL (7-17); Calcium 10.9 mg/dL (8.4-10.2); Carbon Dioxide 26 mmol/L (22-32); Chloride 107 mmol/L (98-107); Estimated Glomerular Filt Rate > 60.0 mL/min (>60); Globulin 2.7 g/dL (1.7-4.1); Glucose 188 mg/dL (80-110); HEMOLYSIS 33 (0-50); Potassium 4.8 mmol/L (3.4-5.1); Sodium 137 mmol/L (137-145)
[2021-04-21 11:50] LABS: Bacteria Urine Many (>30); RBC Urine 10-30/HPF (0-5/HPF); Squamous Epithelial Cell Urine 5-10 /HPF (0-5/HPF); WBC Urine >100/HPF (0-5/HPF)
== END 2021-04-21 11:53 | disposition home or self-care (01) ==
PROVIDERS: Emergency Provider Emergency Medicine; PCP Student in an Organized Health Care Education/Training Program
DX: N20.0 Calculus of kidney (principal); N39.0 Urinary tract infection, site not specified
CPT/HCPCS: 36415; 80053; 81003; 81015; 85025; 87086; J1885; J2405

== ENCOUNTER 2021-04-21 15:49 | Emergency (ER) | payer MEDICARE, SELFPAY ==
[2021-04-21 15:54] VITALS: BP 190/74; PULSE 79; RESP 20; TEMP 36.9; O2SAT 100
--- NOTE | 2021-04-21 15:59 | ED_ITS ---
HPI - Recheck/Abnormal Lab/Rx General Chief Complaint: Recheck/Abnormal Lab/Rx Stated Complaint: kidney stone Time Seen by Provider: 04/21/21 15:58 Source: patient Mode of arrival: Ambulatory History of Present Illness HPI narrative: 75-year-old female former smoker with history of kidney stones, hypertension and type 2 diabetes returns for the 2nd time today with a recurrence, if not worsening of left flank pain. She was seen and evaluated earlier for a left- sided flank pain that it started essentially out of nowhere at about 3:00 a.m. this morning and wraps around to her left groin. She complained of nausea but no vomiting. She has had no fever or chills. She denies dysuria, frequency or urgency. She had urine with blood and white cells and was treated for likely kidney stone and sent with pain meds antibiotics and antiemetics. When she got home her pain started ramping up again and persisted for about 2 hours and she decided to come back for evaluation. She states her discomfort was greatly improved again by the time she arrived, suggesting that her pain meds were now starting to work. Her pain seems to come and go with the mind of its own and she denies any obvious provocation or palliation. Related Data Home Medications Medication Instructions Recorded Confirmed multivitamin (Multiple Vitamins) 1 tab PO QDAY #0 tab 12/03/15 09/23/20 aspirin 81 mg chewable tablet 81 mg PO DAILY 12/25/19 09/23/20 lansoprazole 30 mg capsule,delayed 30 mg PO DAILY 12/25/19 09/23/20 release metformin 500 mg tablet 500 mg PO DAILY 12/25/19 09/23/20 metoprolol succinate 50 mg capsule 50 mg PO DAILY 12/25/19 09/23/20 sprinkle, ext. release 24 hr telmisartan 40 mg tablet (Micardis) 40 mg PO DAILY 12/25/19 09/23/20 Previous Rx's Medication Instructions Recorded cefpodoxime 200 mg tablet 200 mg PO BID 10 Days #20 tab 04/21/21 hydrocodone 5 mg-acetaminophen 325 1 tab PO Q4-6H PRN #10 tab 04/21/21 mg tablet ketorolac 10 mg tablet 10 mg PO Q6H PRN #14 tab 04/21/21 ondansetron 4 mg disintegrating 4 mg PO TID-QID PRN #10 tab 04/21/21 tablet tamsulosin 0.4 mg capsule (Flomax) 0.4 mg PO DAILY #10 cap 04/21/21 Allergies Allergy/AdvReac Type Severity Reaction Status Date / Time esomeprazole [From Nexium] Allergy Severe Vomiting Verified 09/23/20 10:41 adhesive tape [ADHESIVE TAPE] Allergy Unknown Verified 09/23/20 10:41 Review of Systems Review of Systems Narrative: GENERAL: Denies chills, fatigue, malaise, fever, sweats. HEENT: Denies sinus pain, ear pain, sore throat, difficulty swallowing, dizziness. RESPIRATORY: Denies dyspnea, cough, wheezing, hemoptysis, sputum. CARDIOVASCULAR: Denies chest pain, palpitations, orthopnea, edema, GASTROINTESTINAL: Denies nausea, vomiting, abdominal pain, diarrhea, constipation, melena. : See HPI MUSCULOSKELETAL: denies weakness, joint pain, or bony pain SKIN: Denies rash, skin lesions, or other NEUROLOGIC: Denies weakness, headache, numbness, change in speech, confusion, seizures, incoordination. PSYCHIATRIC: No concerning psychosocial issues. 12 point review of systems is negative except for those stated above Patient History Social History Smoking Status: Former smoker eating out: 1-3 times/week Type(s) of exercise: walking Smoking Status: Former smoker alcohol intake frequency: 0-2 drinks per day Substance Use Type: does not use Exam Narrative Exam Narrative: GENERAL: [75] year old patient appears stated age. Well-developed patient, in mild distress. HEAD: Atraumatic. Normocephalic. EYES: Pupils equal round and reactive. Extraocular motions intact. No scleral icterus. No injection or drainage. ENT: Nose without bleeding, purulent drainage. Throat without erythema, tonsillar hypertrophy or exudate. Airway patent. NECK: Trachea midline. Non tender CARDIOVASCULAR: Regular rate and rhythm without murmurs, gallops, or rubs. RESPIRATORY: Clear to auscultation. Breath sounds equal bilaterally. No wheezes, rales, or rhonchi. GASTROINTESTINAL: Abdomen soft, non-tender, nondistended. EXTREMITIES: No edema or joint tenderness. BACK: Nontender without deformity or crepitance. No flank tenderness. NEURO: AOx3. SKIN: No rash or erythema of visible areas Initial Vital Signs Initial Vital Signs: Vital Signs Temperature 98.4 F 04/21/21 15:54 Pulse Rate 79 04/21/21 15:54 Respiratory Rate 20 04/21/21 15:54 Blood Pressure 190/74 H 04/21/21 15:54 Pulse Oximetry 100 04/21/21 15:54 Course Orders Ordered: Discontinued Medications Sodium Chloride (Normal Saline 0.9%) 500 mls @ 1,000 mls/hr IV BOLUS ONE Stop: 04/21/21 16:34 Last Infusion: 04/21/21 17:00 Dose: 0 mls/hr Documented by: Admin: 04/21/21 16:28 Dose: 1,000 mls/hr Documented by: COLBY Metoclopramide HCl (Metoclopramide 10 Mg/2 Ml Inj) 10 mg IV NOW ONE Stop: 04/21/21 16:06 Last Admin: 04/21/21 16:28 Dose: 10 mg Documented by: COLBY Vital Signs Vital signs: Vital Signs - 8 hr 04/21/21 15:54 Temperature 98.4 F Pulse Rate 79 Respiratory Rate 20 Blood Pressure 190/74 H Pulse Oximetry 100 MDM - Recheck/Abnormal Lab/Rx Lab Data Result diagrams: 04/21/21 16:00 Labs: Lab Results 04/21/21 Range/Units 16:00 Sodium 140 (137-145) mmol/L Potassium 4.6 (3.4-5.1) mmol/L Chloride 107 (98-107) mmol/L Carbon Dioxide 27 (22-32) mmol/L BUN 24 H (7-17) mg/dL Creatinine 1.00 (0.52-1.04) mg/dL Estimated GFR 54.2 L (>60) mL/min BUN/Creatinine Ratio 24.0 H (6-22) Glucose 182 H (80-110) mg/dL Calcium 10.3 H (8.4-10.2) mg/dL Discharge Plan Departure Patient Disposition: Home Clinical Impression: Kidney calculi, Acute UTI Instructions: DI for Kidney Stones, DI for Urinary Tract Infection (UTI) Activity Restrictions/Additional Instructions: *You have been diagnosed with [4 mm left-sided kidney stone with urinary tract infection *What to do: *Please continue to take your regular medications as directed. [x ] New medication prescriptions sent to your pharmacy: [ [facility]] [ ] New medication written as a paper prescription [ ] No new medications given *Please follow up with your primary care provider in 2-3 days, call for an appointment. Let them know you were seen in the Emergency Department and that we ask that you be seen in follow up. We will electronically transmit a record of today's note if your PCP is in our system *If you do not have a primary care provider please contact the [facility] Resource line at [phone]. They will ask some questions about your medical history and help get you set up with a doctor in the community. *Return to Emergency Department if you should have any new, worsening or concerning symptoms, such as [fever greater than 101 F, shaking chills, worsening pain, persistent vomiting or other bothersome symptoms] Prescriptions: No Action multivitamin [Multiple Vitamins] 1 EACH tablet 1 tab PO QDAY Qty: 0 0RF metoprolol succinate 50 mg capsule,sprinkle,ER 24hr 50 mg PO DAILY 0RF metformin 500 mg tablet 500 mg PO DAILY 0RF Hold Instructions: Due for labs telmisartan [Micardis] 40 mg tablet 40 mg PO DAILY 0RF aspirin 81 mg tablet,chewable 81 mg PO DAILY 0RF lansoprazole 30 mg capsule,delayed release(DR/EC) 30 mg PO DAILY 0RF cefpodoxime 200 mg tablet 200 mg PO BID 10 Days Qty: 20 0RF Rx Instructions: must administer with a meal/food ketorolac 10 mg tablet 10 mg PO Q6H PRN (Reason: pain) Qty: 14 0RF ondansetron 4 mg tablet,disintegrating 4 mg PO TID-QID PRN (Reason: nausea and vomiting) Qty: 10 0RF tamsulosin [Flomax] 0.4 mg capsule 0.4 mg PO DAILY Qty: 10 0RF hydrocodone-acetaminophen 5-325 mg tablet 1 tab PO Q4-6H PRN (Reason: pain) Qty: 10 0RF Referrals: Franklyn Daugherty MD [Primary Care Provider] -
--- NOTE | 2021-04-21 16:04 | DI.CT.S_ITS ---
PROCEDURE: CT KIDNEY URETER BLADDER (KUB) INDICATIONS: worsening flank pain, hematuria TECHNIQUE: Axial sections were acquired from the lung bases to the pubic symphysis. Coronal and sagittal reformats were performed. For radiation dose reduction, the following was used: automated exposure control, adjustment of mA and/or kV according to patient size. COMPARISON: [facility], CT, KIDNEY/ URETER/BLADDER, 09/21/2014, 7:36. FINDINGS: Image quality: Excellent. Lung bases: Bibasilar atelectasis. No pleural effusion. Heart: No significant findings. Small hiatal hernia. URINARY: Right Kidney: No hydronephrosis. Possible punctate stones at the inferior pole. Right Ureter: No hydroureter. Left Kidney: Mild hydronephrosis. No additional stones. Mild perinephric stranding. Left Ureter: Obstructing calculus measuring 0.4 cm, (2/75). Bladder: Normal wall thickness. No bladder stones. ABDOMEN: Liver: Hepatic steatosis. Gallbladder: Unremarkable. Biliary ducts: Unremarkable. Pancreas: Unremarkable. Spleen: Unremarkable. Adrenal Glands: Unremarkable. Stomach and Bowel: Stomach, small bowel loops, and colon are unremarkable. Normal appendix. Diverticulosis. Peritoneum: No abnormal intraperitoneal fluid. No free air. Ventral Wall: No hernia. Abdominal Nodes: No enlarged retroperitoneal or mesenteric lymph nodes. Vessels: Aorta and inferior vena cava are normal in size. PELVIS: Pelvic Organs: Uri's is absent. Pelvic Nodes: Unremarkable. Miscellaneous: No inguinal hernias are seen. Bones: Unremarkable. IMPRESSION: 1. Left UVJ obstructing calculus measuring 0.4 cm. Mild left hydronephrosis. 2. Questionable additional punctate nonobstructing right kidney stones. Additional findings: Diverticulosis. Hepatic steatosis. Small hiatal hernia. Comment: Findings were discussed with Griffin Moulton at the time of dictation. Dictated by: Lee Torrez M.D. on 04/21/2021 at 16:52 Approved by: Lee Torrez M.D. on 04/21/2021 at 16:58
[2021-04-21] MEDS: SODIUM CHLORIDE 0.9% 500 ML 1000 ML IV (16:28)
[2021-04-21] MEDS: METOCLOPRAMIDE 10 MG/2 ML INJ IV (16:28)
[2021-04-21 16:40] LABS: Blood Urea Nitrogen 24 mg/dL (7-17); Calcium 10.3 mg/dL (8.4-10.2); Carbon Dioxide 27 mmol/L (22-32); Chloride 107 mmol/L (98-107); Estimated Glomerular Filt Rate 54.2 mL/min (>60); Glucose 182 mg/dL (80-110); HEMOLYSIS < 15 (0-50); Potassium 4.6 mmol/L (3.4-5.1); Sodium 140 mmol/L (137-145)
[2021-04-21 17:28] VITALS: BP 155/68; PULSE 79; RESP 16; O2SAT 99
== END 2021-04-21 17:28 | disposition home or self-care (01) ==
PROVIDERS: Emergency Provider Emergency Medicine; PCP Student in an Organized Health Care Education/Training Program
DX: N20.0 Calculus of kidney (principal); N39.0 Urinary tract infection, site not specified
CPT/HCPCS: 36415; 74176; 80048; 80053; 81003; 81015; 85025; 87077; 87086; 87147; 96361; 96374; 99284; J1885; J2405; J2765

== ENCOUNTER → 2021-04-29 12:05 | Outpatient (CLI) | payer MEDICARE, SELFPAY ==
[2021-04-29 13:53] LABS: Hematocrit 42.5 % (36-46); Mean Corpuscular Hemoglobin 28.8 PG (26-34); Mean Corpuscular Volume 87.4 fL (80-100); Platelet Count 179 X10^3/uL (150-400); Red Blood Cell Count 4.86 X10^6/uL (4.0-5.2); Red Cell Distribution Width 13.3 % (11.6-14.8); White Blood Cell Count 5.4 X10^3/uL (4.5-11.0)
[2021-04-29 14:02] LABS: Hemoglobin A1C% w Est Avg Glu 7.4 % (4.0-6.0)
[2021-04-29 14:24] LABS: Alanine Aminotransferase 38 IU/L (<35); Albumin Globulin Ratio 1.7 (1.0-2.8); Alkaline Phosphatase 98 U/L (38-126); Aspartate Aminotransferase 31 IU/L (14-36); BUN Creatinine Ratio 21.1 (6-22); Bilirubin Total 0.4 mg/dL (0.2-1.3); Blood Urea Nitrogen 15 mg/dL (7-17); Calcium 10.7 mg/dL (8.4-10.2); Carbon Dioxide 32 mmol/L (22-32); Chloride 104 mmol/L (98-107); Cholesterol 192 mg/dL (140-199); Estimated Glomerular Filt Rate > 60.0 mL/min (>60); Globulin 2.4 g/dL (1.7-4.1); Glucose 130 mg/dL (80-110); HDL Cholesterol 52 mg/dL (40-60); HEMOLYSIS < 15 (0-50); LDL Cholesterol Calculated 117 mg/dL (<100); Potassium 4.3 mmol/L (3.4-5.1); Sodium 138 mmol/L (137-145); Total Protein 6.4 g/dL (6.3-8.2); Triglycerides 117 mg/dL (35-150)
[2021-04-29 17:20] LABS: Microalbumin Urine Random 2.6 mg/dL (0-1.6)
[2021-04-29 17:21] LABS: Creatinine Urine Random 90.1 mg/dL; Microalbumi Creatinin Ratio Ur 28.8 ug/mg CR (<30)
== END ==
PROVIDERS: PCP Student in an Organized Health Care Education/Training Program; Referring Provider Student in an Organized Health Care Education/Training Program; Visit Provider Student in an Organized Health Care Education/Training Program
DX: E11.69 Type 2 diabetes mellitus with other specified complication (principal); E78.5 Hyperlipidemia, unspecified; K76.0 Fatty (change of) liver, not elsewhere classified; I10 Essential (primary) hypertension
CPT/HCPCS: 36415; 80053; 80061; 82043; 82570; 83036; 85027

== ENCOUNTER → 2021-10-18 14:24 | Outpatient (CLI) | payer MEDICARE, SELFPAY ==
[2021-10-18 15:49] LABS: Hemoglobin A1C% w Est Avg Glu 8.3 % (4.0-6.0)
[2021-10-18 16:05] LABS: Alanine Aminotransferase 38 IU/L (<35); Albumin 4.1 g/dL (3.5-5.0); Albumin Globulin Ratio 1.6 (1.0-2.8); Alkaline Phosphatase 98 U/L (38-126); Aspartate Aminotransferase 32 IU/L (14-36); BUN Creatinine Ratio 21.2 (6-22); Bilirubin Total 0.4 mg/dL (0.2-1.3); Blood Urea Nitrogen 14 mg/dL (7-17); Carbon Dioxide 30 mmol/L (22-32); Chloride 105 mmol/L (98-107); Estimated Glomerular Filt Rate > 60 mL/min (>60); Globulin 2.6 g/dL (1.7-4.1); Glucose 143 mg/dL (80-110); HEMOLYSIS < 15 (0-50); Potassium 4.3 mmol/L (3.4-5.1); Sodium 138 mmol/L (137-145); Total Protein 6.7 g/dL (6.3-8.2)
[2021-10-18 16:13] LABS: NT-proBNP (BNP-Adult 18+) 160 pg/mL (<125)
[2021-10-18 16:20] LABS: Calcium 10.3 mg/dL (8.4-10.2)
[2021-10-18 16:21] LABS: Vitamin D 25 Hydroxy (D3) 30.8 ng/mL (30.0-100.0)
[2021-10-19 06:01] LABS: Parathyroid Hormone Int 73 pg/mL (15-65)
== END ==
PROVIDERS: PCP Student in an Organized Health Care Education/Training Program; Referring Provider Student in an Organized Health Care Education/Training Program; Visit Provider Student in an Organized Health Care Education/Training Program
DX: E83.52 Hypercalcemia (principal); E11.9 Type 2 diabetes mellitus without complications; I10 Essential (primary) hypertension; R60.9 Edema, unspecified; K76.0 Fatty (change of) liver, not elsewhere classified
CPT/HCPCS: 36415; 80053; 82306; 83036; 83880; 83970

== ENCOUNTER → 2022-01-14 13:02 | Outpatient (CLI) | payer MEDICARE, SELFPAY ==
[2022-01-14 14:21] LABS: Blood Urea Nitrogen 18 mg/dL (7-17); Carbon Dioxide 29 mmol/L (22-32); Chloride 102 mmol/L (98-107); Estimated Glomerular Filt Rate > 60 mL/min (>60); Glucose 162 mg/dL (80-110); HEMOLYSIS < 15 (0-50); Potassium 4.3 mmol/L (3.4-5.1); Sodium 139 mmol/L (137-145)
== END ==
PROVIDERS: PCP Student in an Organized Health Care Education/Training Program; Referring Provider Student in an Organized Health Care Education/Training Program; Visit Provider Student in an Organized Health Care Education/Training Program
DX: E11.9 Type 2 diabetes mellitus without complications (principal); E21.0 Primary hyperparathyroidism
CPT/HCPCS: 36415; 80048; 83036

== ENCOUNTER → 2022-04-08 14:42 | Outpatient (CLI) | payer MEDICARE, SELFPAY ==
[2022-04-08 17:09] LABS: BUN Creatinine Ratio 32.6 (6-22); Blood Urea Nitrogen 30 mg/dL (7-17); Calcium 10.7 mg/dL (8.4-10.2); Carbon Dioxide 29 mmol/L (22-32); Chloride 100 mmol/L (98-107); Estimated Glomerular Filt Rate > 60 mL/min (>60); Glucose 219 mg/dL (80-110); HEMOLYSIS < 15 (0-50); Sodium 137 mmol/L (137-145)
[2022-04-10 08:21] LABS: Fructosamine 338 umol/L (0-285)
== END ==
PROVIDERS: PCP Student in an Organized Health Care Education/Training Program; Referring Provider Student in an Organized Health Care Education/Training Program; Visit Provider Student in an Organized Health Care Education/Training Program
DX: E11.9 Type 2 diabetes mellitus without complications (principal); E21.0 Primary hyperparathyroidism; I10 Essential (primary) hypertension
CPT/HCPCS: 36415; 80048; 82985

== ENCOUNTER → 2022-09-15 11:00 | Outpatient (CLI) | payer MEDICARE, SELFPAY ==
[2022-09-15 11:36] LABS: Add Manual Diff / Slide Review NO; Basophils Absolute Auto 0 /uL (0-100); Basophils Percent Auto 0.6 % (0-2); Eosinophils Absolute Auto 100 /uL (0-450); Eosinophils Percent Auto 2.1 % (2-4); Hematocrit 39.4 % (36-46); Hemoglobin 13.4 g/dL (12.0-16.0); Lymphocytes Absolute Auto 1700 /uL (1100-4500); Lymphocytes Percent Auto 34.9 % (25-40); Mean Corpuscular Hemoglobin 29.4 PG (26-34); Mean Corpuscular Volume 86.6 fL (80-100); Monocytes Absolute Auto 300 /uL (0-900); Monocytes Percent Auto 5.7 % (3-14); Neutrophils Absolute Auto 2800 /uL (1500-7000); Neutrophils Percent Auto 56.7 % (50-75); Platelet Count 162 X10^3/uL (150-400); Red Blood Cell Count 4.55 X10^6/uL (4.0-5.2); Red Cell Distribution Width 13.6 % (11.6-14.8); White Blood Cell Count 4.9 X10^3/uL (4.5-11.0)
[2022-09-15 11:54] LABS: Alanine Aminotransferase 41 IU/L (<35); Albumin 3.8 g/dL (3.5-5.0); Albumin Globulin Ratio 1.5 (1.0-2.8); Alkaline Phosphatase 90 U/L (38-126); Aspartate Aminotransferase 30 IU/L (14-36); BUN Creatinine Ratio 25.3 (6-22); Bilirubin Total 0.4 mg/dL (0.2-1.3); Blood Urea Nitrogen 20 mg/dL (7-17); Calcium 10.7 mg/dL (8.4-10.2); Carbon Dioxide 29 mmol/L (22-32); Chloride 105 mmol/L (98-107); Cholesterol 208 mg/dL (140-199); Estimated Glomerular Filt Rate > 60 mL/min (>60); Globulin 2.6 g/dL (1.7-4.1); Glucose 210 mg/dL (80-110); HDL Cholesterol 44 mg/dL (40-60); HEMOLYSIS < 15 (0-50); LDL Cholesterol Calculated 131 mg/dL (<100); Potassium 4.1 mmol/L (3.4-5.1); Sodium 138 mmol/L (137-145); Total Protein 6.4 g/dL (6.3-8.2); Triglycerides 164 mg/dL (35-150)
[2022-09-15 12:41] LABS: Vitamin B12 491 pg/mL (239-931)
[2022-09-16 05:42] LABS: Labcorp Hemoglobin (Hb) A1c 9.2 % (4.8-5.6)
[2022-09-17 08:09] LABS: Parathyroid Hormone Int 54 pg/mL (15-65)
== END ==
PROVIDERS: PCP Student in an Organized Health Care Education/Training Program; Referring Provider Pediatrics; Visit Provider Pediatrics
DX: E21.0 Primary hyperparathyroidism (principal); E11.9 Type 2 diabetes mellitus without complications; K90.0 Celiac disease; E11.69 Type 2 diabetes mellitus with other specified complication; E78.5 Hyperlipidemia, unspecified; I10 Essential (primary) hypertension
CPT/HCPCS: 36415; 80053; 80061; 82607; 83036; 83970; 85025

== ENCOUNTER → 2022-12-14 12:24 | Outpatient (CLI) | payer MEDICARE, SELFPAY ==
--- NOTE | 2022-12-14 12:25 | DI.RAD.S_ITS ---
Bone Density Report Name: JO DEUTSCH Age: 76 Sex: Female Ethnicity: White Date of : 1945 Indication: postmenopausal; screening for osteoporosis; Referring Provider: BEHZAD ANDREA Study: Bone densitometry was performed. Exam Date: December 14, 2022 Accession number: [id number] Bone Density: Region BMD T-score Z-score Classification AP Spine(L1-L4) 1.096 0.4 2.9 Normal Femoral Neck (Left) 0.806 -0.4 1.7 Normal Total Hip (Left) 0.972 0.2 2.1 Normal Femoral Neck (Right) 0.805 -0.4 1.7 Normal Total Hip (Right) 0.996 0.4 2.3 Normal Total Hip Mean 0.984 0.3 2.2 Normal World Health Organization criteria for BMD impression classify patients as: Normal (T-score at or above -1.0), Osteopenia (T-score between -1.0 and -2.5), or Osteoporosis (T-score at or below -2.5). 10-year Fracture Risk: FRAX not reported because: All T-scores for Spine Total, Hip Total, Femoral Neck at or above -1.0 Previous Exams: -- Region Exam Age BMD T-score BMD Change BMD Change Date g/cm2 vs Baseline vs Previous -- AP Spine (L1-L4) 12/14/2022 76 1.096 0.4 0.051 (4.9%)# 0.051 (4.9%)# 02/03/2020 74 1.045 0.0 Total Hip(Left) 12/14/2022 76 0.972 0.2 -0.030 (-3.0%)# -0.030 (-3.0%)# 02/03/2020 74 1.002 0.5 Total Hip(Right) 12/14/2022 76 0.996 0.4 0.004 (0.4%)# 0.004 (0.4%)# 02/03/2020 74 0.992 0.4 -- *Denotes significance at 95% confidence level, LSC for AP Spine = 0.022 g/cm2, LSC for Total Hip = 0.027 g/cm2 # Denotes dissimilar scan types or analysis methods Impression: The patient has normal bone mass. No significant bone loss was observed. Discussion: BONE DENSITY IS ABOVE THE MINIMUM DESIRABLE LEVEL AT ALL SKELETAL SITES TESTED. This patient's bone mineral density is above the minimum desirable level (T-score -1.0 or better) at all sites measured. The patient should follow a healthful lifestyle (good nutrition with adequate calcium and vitamin D, and appropriate weight-bearing exercise). Follow-Up: Consider repeating this study in 5 years or sooner if there is some new clinical indication. Reported by: RJ DAVILA M.D. on 12/14/2022 12:52:00 PM.
== END ==
PROVIDERS: PCP Pediatrics; Referring Provider Pediatrics; Visit Provider Pediatrics
DX: M06.9 Rheumatoid arthritis, unspecified (principal); Z78.0 Asymptomatic menopausal state; I10 Essential (primary) hypertension; E11.9 Type 2 diabetes mellitus without complications; E11.69 Type 2 diabetes mellitus with other specified complication; E78.5 Hyperlipidemia, unspecified; Z86.39 Personal history of other endocrine, nutritional and metabolic disease; Z79.52 Long term (current) use of systemic steroids; Z92.23 Personal history of estrogen therapy; Z90.710 Acquired absence of both cervix and uterus
CPT/HCPCS: 77080

== ENCOUNTER → 2023-05-05 16:54 | Outpatient (CLI) | payer MEDICARE, SELFPAY ==
[2023-05-05 18:35] LABS: Influenza A - CEPHEID Flu A NEGATIVE (NEGATIVE); Influenza B - CEPHEID Flu B NEGATIVE (NEGATIVE); Respiratory Syncytial Virus Negative (Negative)
[2023-05-05 19:04] LABS: COVID-19 CEPHEID 4-PLEX PCR Negative (Negative)
== END ==
PROVIDERS: PCP Pediatrics; Visit Provider Physician Assistant
DX: R05.9 Cough, unspecified (principal); J34.89 Other specified disorders of nose and nasal sinuses; Z20.828 Contact with and (suspected) exposure to other viral communicable diseases
CPT/HCPCS: 0241U

== ENCOUNTER 2024-05-15 17:17 | Emergency (ER) | payer MEDICARE, SELFPAY ==
[2024-05-15] VITALS (12 sets, daily range): BP systolic 149–219; BP diastolic 66–99; PULSE 70–80; RESP 11–22; TEMP 36.4; O2SAT 96–99; BMI 31.9
--- NOTE | 2024-05-15 17:43 | DI.RAD.S_ITS ---
PROCEDURE: XR CHEST 1V INDICATIONS: chest pain TECHNIQUE: One view of the chest was acquired. COMPARISON: [facility], CR, XR CHEST 1V, 10/05/2018, 12:47. FINDINGS: Surgical changes and devices: None. Lungs and pleura: Lungs are clear. No pleural effusions or pneumothorax. Poor inspiratory effort. Mediastinum: Mediastinal contours appear normal. Heart size is mildly prominent. Bones and chest wall: No suspicious bony lesions. Overlying soft tissues appear unremarkable. IMPRESSION: Poor inspiratory effort limiting evaluation. No gross consolidations. Dictated by: Solange Amin M.D. on 05/15/2024 at 18:23 Approved by: Solange Amin M.D. on 05/15/2024 at 18:23
--- NOTE | 2024-05-15 17:43 | EKG_ITS ---
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
[2024-05-15 18:16] LABS: Prothrombin Time 11.4 SECONDS (9.4-12.5)
[2024-05-15 18:19] LABS: PTT Partial Thromboplastin Tim 35 SECONDS (25.1-36.5)
[2024-05-15 18:21] LABS: Add Manual Diff / Slide Review NO; Basophils Absolute Auto 0 /uL (0-100); Basophils Percent Auto 0.4 % (0-2); Eosinophils Absolute Auto 100 /uL (0-450); Eosinophils Percent Auto 1.1 % (2-4); Hematocrit 41.2 % (36-46); Hemoglobin 13.7 g/dL (12.0-16.0); Lymphocytes Absolute Auto 2000 /uL (1100-4500); Lymphocytes Percent Auto 34.6 % (25-40); Mean Corpuscular HGB Conc 33.2 % (30-36); Mean Corpuscular Hemoglobin 29.4 PG (26-34); Mean Corpuscular Volume 88.5 fL (80-100); Monocytes Absolute Auto 300 /uL (0-900); Monocytes Percent Auto 5.7 % (3-14); Neutrophils Absolute Auto 3300 /uL (1500-7000); Neutrophils Percent Auto 58.2 % (50-75); Platelet Count 172 X10^3/uL (150-400); Red Blood Cell Count 4.66 X10^6/uL (4.0-5.2); Red Cell Distribution Width 13.4 % (11.6-14.8); White Blood Cell Count 5.6 X10^3/uL (4.5-11.0)
[2024-05-15 18:23] LABS: Alanine Aminotransferase 52 IU/L (<35); Albumin 4.1 g/dL (3.5-5.0); Albumin Globulin Ratio 1.5 (1.0-2.8); Alkaline Phosphatase 100 U/L (38-126); Aspartate Aminotransferase 40 IU/L (14-36); BUN Creatinine Ratio 13.2 (6-22); Bilirubin Total 0.3 mg/dL (0.2-1.3); Blood Urea Nitrogen 12 mg/dL (7-17); Calcium 10.2 mg/dL (8.4-10.2); Carbon Dioxide 26 mmol/L (22-32); Chloride 105 mmol/L (98-107); Creatine Kinase 67 U/L (30-135); Estimated Glomerular Filt Rate > 60 mL/min (>60); Globulin 2.7 g/dL (1.7-4.1); Glucose 137 mg/dL (80-110); HEMOLYSIS < 15 (0-50); Lipase 80 U/L (23-300); Magnesium 1.6 mg/dL (1.6-2.3); Potassium 3.8 mmol/L (3.4-5.1); Sodium 138 mmol/L (137-145); Total Protein 6.8 g/dL (6.3-8.2)
[2024-05-15 18:34] LABS: NT-proBNP (BNP-Adult 18+) 123 pg/mL (<450); Troponin I < 0.012 ng/mL (0.01-0.034)
[2024-05-15] MEDS: ASPIRIN 81 MG CHEW TAB 324 MG PO (19:43)
--- NOTE | 2024-05-15 22:13 | ED.NEUROSD ---
HPI - Neuro Symptoms/Deficit General Chief Complaint: Neuro Symptoms/Deficit Stated Complaint: Sent by , Ocular Migraine Memory Loss Time Seen by Provider: 05/15/24 18:39 Source: patient Mode of arrival: Ambulatory History of Present Illness HPI Narrative: 78-year-old female with history of ocular migraines, diabetes, no known history of stroke, had taken her usual medications, was drinking coffee with splint the but no cream or sugar about 10 30 this morning, 20 minutes later she noticed that she had right-sided blurred vision that she thought might have been her ocular migraine, then she seemed to have trouble with reading her book that she was reading, short-term memory, could not remember what she would just red, but she was able to dial reply with her smart phone to a friend she would just spoken with, worried that she might be having a possible stroke, then her symptoms seemed to resolve. She was able to attend scheduled dental visit for post implant at 1:00 p.m. without difficulties. Then came here for further evaluation. No associated palpitations or chest pain or shortness of breath. No shaking or seizure activity. No unsteady date recalled. No further symptoms. No changes in her chronic diabetes medications. Symptoms seemed to be resolved, at her baseline. On Anticoagulants: No Related Data Home Medications Medication Instructions Recorded Confirmed multivitamin (Multiple Vitamins 1 tab PO QDAY #0 tabs 12/03/15 10/20/23 tablet) aspirin 81 mg chewable tablet 81 mg PO DAILY 12/25/19 10/20/23 cholecalciferol (vitamin D3) 50 50 mcg PO DAILY 05/03/21 10/20/23 mcg (2,000 unit) capsule chlorthalidone 25 mg tablet 25 mg PO DAILY PRN high blood 05/05/23 10/20/23 pressure and swelling metformin 750 mg tablet,extended 750 mg PO DAILY 05/05/23 10/20/23 release 24 hr Previous Rx's Medication Instructions Recorded metoprolol succinate 50 mg 50 mg PO DAILY #90 tabs 08/01/22 tablet,extended release 24 hr telmisartan 40 mg tablet (Micardis) 40 mg PO DAILY #90 tabs 08/09/22 ondansetron HCl 4 mg tablet 4 mg PO TID PRN nausea and 09/16/22 vomiting #30 tabs Allergies Allergy/AdvReac Type Severity Reaction Status Date / Time esomeprazole [From Nexium] Allergy Severe Vomiting Verified 10/20/23 11:05 adhesive tape [ADHESIVE TAPE] Allergy Unknown Verified 10/20/23 11:05 Review of Systems Hematologic/Lymphatic On Anticoagulants: No Patient History Medical History History of hypercalcemia Social History Smoking Status: Former smoker eating out: 1-3 times/week Type(s) of exercise: walking Smoking Status: Former smoker alcohol intake frequency: 0-2 drinks per day Exam Narrative Exam Narrative: GENERAL: Well-developed patient, in mild distress. HEAD: Atraumatic. Normocephalic. EYES: Pupils equal round and reactive. Extraocular motions intact. No scleral icterus. No injection or drainage. ENT: Nose without bleeding, purulent drainage. Throat without erythema, tonsillar hypertrophy or exudate. Airway patent. NECK: Trachea midline. Non tender CARDIOVASCULAR: Regular rate and rhythm without murmurs, gallops, or rubs. RESPIRATORY: Clear to auscultation. Breath sounds equal bilaterally. No wheezes, rales, or rhonchi. GASTROINTESTINAL: Abdomen soft, non-tender, nondistended. EXTREMITIES: No edema or joint tenderness. BACK: Nontender without deformity or crepitance. No flank tenderness. NEURO: AOx3. Motor functions 5/5 upper extremities, motor functions 5/5 bilateral lower extremity, noted to have normal gait. Sensation intact to light touch face arms legs. [id number] testing normal. Clear speech. Cranial nerves 2-12 intact. SKIN: No rash or erythema of visible areas Initial Vital Signs Initial Vital Signs: Vital Signs Temperature 97.5 F L 05/15/24 17:29 Pulse Rate 79 05/15/24 17:29 Respiratory Rate 14 05/15/24 17:29 Blood Pressure 219/86 H 05/15/24 17:29 Pulse Oximetry 97 05/15/24 17:29 Oxygen Delivery Method Room Air 05/15/24 17:29 Course Orders Ordered: Discontinued Medications Aspirin (Aspirin 81 Mg Chew Tab) 324 mg PO NOW ONE Stop: 05/15/24 17:43 Last Admin: 05/15/24 19:43 Dose: 324 mg Documented By: AI Vital Signs Vital signs: Vital Signs - 8 hr 05/15/24 22:56 Pulse Rate 80 Respiratory Rate 16 Blood Pressure 217/99 H Pulse Oximetry 96 Oxygen Delivery Method Room Air MDM - Neuro Symptoms/Deficit Lab Data Attestation: I reviewed the patient's lab results. Lab results narrative: White blood cell count 5600, hemoglobin 13.7, platelets adequate. Glucose 137. Remainder of basic metabolic panel also unremarkable. Liver functions and lipase normal. BNP normal. Troponin negative. 05/15/24 17:54 05/15/24 17:54 Labs: Lab Results 05/15/24 Range/Units 17:54 WBC 5.6 (4.5-11.0) X10^3/uL RBC 4.66 (4.0-5.2) X10^6/uL Hgb 13.7 (12.0-16.0) g/dL Hct 41.2 (36-46) % MCV 88.5 (80-100) fL MCH 29.4 (26-34) PG MCHC 33.2 (30-36) % RDW 13.4 (11.6-14.8) % Plt Count 172 (150-400) X10^3/uL Neut % (Auto) 58.2 (50-75) % Lymph % (Auto) 34.6 (25-40) % [place] % (Auto) 5.7 (3-14) % Eos % (Auto) 1.1 L (2-4) % Baso % (Auto) 0.4 (0-2) % Neut # (Auto) 3300 (3450-3086) /uL Lymph # (Auto) 2000 (6012-4342) /uL [place] # (Auto) 300 (0-900) /uL Eos # (Auto) 100 (0-450) /uL Baso # (Auto) 0 (0-100) /uL PT 11.4 (9.4-12.5) SECONDS INR 1.0 (0.9-1.3) APTT 35 (25.1-36.5) SECONDS Sodium 138 (137-145) mmol/L Potassium 3.8 (3.4-5.1) mmol/L Chloride 105 (98-107) mmol/L Carbon Dioxide 26 (22-32) mmol/L BUN 12 (7-17) mg/dL Creatinine 0.91 (0.52-1.04) mg/dL Estimated GFR > 60 (>60) mL/min BUN/Creatinine Ratio 13.2 (6-22) Glucose 137 H (80-110) mg/dL Calcium 10.2 (8.4-10.2) mg/dL Magnesium 1.6 (1.6-2.3) mg/dL Total Bilirubin 0.3 (0.2-1.3) mg/dL AST 40 H (14-36) IU/L ALT 52 H (<35) IU/L Alkaline Phosphatase 100 (38-126) U/L Total Creatine Kinase 67 (30-135) U/L Troponin I < 0.012 (0.01-0.034) ng/mL NT-Pro-B Natriuret Pep 123 (<450) pg/mL Total Protein 6.8 (6.3-8.2) g/dL Albumin 4.1 (3.5-5.0) g/dL Globulin 2.7 (1.7-4.1) g/dL Albumin/Globulin Ratio 1.5 (1.0-2.8) Lipase 80 (23-300) U/L ECG Data Attestation: I personally reviewed and interpreted this ECG as follows: Interpretation: Normal sinus rhythm with rate of 70, no obvious ST segment elevation or depression changes. T-wave flattening in leads 3 and F noted, upright appearance lead 2. MS 172, QRS 76, QTC 393. [facility] Narrative Medical decision making narrative: 78-year-old female with history of ocular migraines, history of diabetes, no known prior strokes, had eaten breakfast 10 30 this morning, 20 minutes later while reading seemed to have difficulty with short-term memory not remembering what she had just red, right-sided blurred vision that seemed typical for her ocular migraines, but not usually with any associated memory problems, was able to on her own dial her friend return call, speaking normally, symptoms resolved thereafter. She was able to attend 1:00 p.m. dental visit without problems, here for further evaluation. No symptoms since that time. Examination unremarkable, lab studies unremarkable, glucose your 137. Symptoms suspicious for hypoglycemic episode, she had not documented her sugar level however, but transient memory problem symptoms resolved after oral intake. Consider also TIA. Consider TIA, consider CT head, CT angiogram neck vessels, MRI not available here until tomorrow. She has not want to have any these tests done at this time, and will follow up with her regular doctor for further testing as ooutpatient for now. She was encouraged to check her sugar any time that she has any symptoms of concern such as shakiness or weakness or infusion, if she is able to do so, to see if low sugars associated with any of her symptoms. She is also encouraged to eat regular diet, especially before administration of any of her diabetic medications, not to delay her meals, or take decreased change in intake if her medication regimen is not also change. Follow up with PCP advised, return precautions. Discharged home per patient request. Discharge Plan Departure Patient Disposition: Home Clinical Impression: Memory problem, History of diabetes mellitus, History of migraine headaches Activity Restrictions/Additional Instructions: Ms. Bailon, You had reported history of diabetes, and also history of ocular migraines, with morning breakfast a proximally 10 30, within 20 minutes or so while reading seemed to have difficulty with right-sided blurred vision, similar to previous ocular migraine headaches that you have had in the past. However he also had trouble remembering what you had just been reading, usually no history of any memory problems. No focal weakness to face arm or leg. Able to swallow and speak. In fact you were able to dial your smart phone to a friend to converse. You subsequently felt better. You in fact were able to go to your 1:00 a.m. follow up dental appointment. Then here for further evaluation. Reassuring vital signs here, and also reassuring neurological assessment here. Your blood sugar here was 137. Your electrolytes were okay. Consider hypoglycemic episode, though you had not checked her sugar with these symptoms, so it is unclear. If your sugar was going low in the setting of a late breakfast, it is possible your memory symptoms could have been related to low sugar, and resolved as your solid breakfast was starting to be absorbed. It is also possible to have a transient ischemic attack. It is possible to have further workup, you did not want to have this workup now in the emergency department that might include brain imaging and neck vessel imaging for example, but would pursue this if needed as an outpatient. You are encouraged to make sure that you take the same oral intake, as you might be at risk for hypoglycemic episodes, if you are taking same diabetic medication regimen but having altered irregular times of your oral intake, or have decreased oral intake keeping the same diabetic medication regimen. Follow up with your regular doctor advised soon, to see if you want to pursue outpatient TIA workup. Return earlier to this/nearest emergency department for any change worsening symptoms or any concerns prior. Thank you for allowing our team to evaluate you today. Prescriptions: No Action chlorthalidone 25 mg tablet 25 mg PO DAILY PRN (Reason: high blood pressure and swelling) Hold Instructions: Needs labs Rx Instructions: Increase to two tabs once daily for 3-4 days when excess fluid on ankles. Cut back to once tab once daily for blood pressure after that. This med and HCTZ essentially the same type of med. metformin 750 mg tablet extended release 24 hr 750 mg PO DAILY multivitamin [Multiple Vitamins] 1 EACH tablet 1 tab PO QDAY Qty: 0 metoprolol succinate 50 mg tablet extended release 24 hr 50 mg PO DAILY Qty: 90 3RF Hold Instructions: Needs labs telmisartan [Micardis] 40 mg tablet 40 mg PO DAILY Qty: 90 2RF aspirin 81 mg tablet,chewable 81 mg PO DAILY ondansetron HCl 4 mg tablet 4 mg PO TID PRN (Reason: nausea and vomiting) Qty: 30 1RF cholecalciferol (vitamin D3) 50 mcg (2,000 unit) capsule 50 mcg PO DAILY Referrals: Migue Hatch MD [Primary Care Provider] - Stand Alone Forms: Patient Portal/API/Survey
== END 2024-05-15 23:02 | disposition home or self-care (01) ==
PROVIDERS: Emergency Medicine; Emergency Provider Emergency Medicine; PCP Pediatrics
DX: R41.3 Other amnesia (principal); R07.9 Chest pain, unspecified; Z79.82 Long term (current) use of aspirin; E11.9 Type 2 diabetes mellitus without complications; Z79.84 Long term (current) use of oral hypoglycemic drugs; Z87.891 Personal history of nicotine dependence; Z86.69 Personal history of other diseases of the nervous system and sense organs
CPT/HCPCS: 36415; 71045; 80053; 82550; 83690; 83735; 83880; 84484; 85025; 85610; 85730; 93005; 93010; 99285